=== PATIENT | male | born 1935 | race Caucasian/White ===

== ENCOUNTER 2018-10-31 17:37 | Inpatient (IN) | payer OTHER ==
[~2018-10-31] VITALS: Ht 182.9 cm; Wt 95.2 kg
[2018-10-31 18:13] LABS: BASOPHILS ABSOLUTE AUTO 0.03 K/mm3 (0.00-0.23); BASOPHILS PERCENT AUTO 0 % (0-2); EOSINOPHILS ABSOLUTE AUTO 0.07 K/mm3 (0.00-0.68); EOSINOPHILS PERCENT AUTO 0 % (0-6); Hematocrit 50.5 % (37.0-53.0); Hemoglobin 16.5 g/dL (13.5-17.5); IMMATURE GRAN ABSOLUTE AUTO 0.07 K/mm3 (0.00-0.10); IMMATURE GRAN PERCENT AUTO 0 % (0-1); LYMPHOCYTES ABSOLUTE AUTO 2.32 K/mm3 (0.84-5.20); LYMPHOCYTES PERCENT AUTO 14 % (21-46); MONOCYTES ABSOLUTE AUTO 0.96 K/mm3 (0.16-1.47); MONOCYTES PERCENT AUTO 6 % (4-13); Mean Corpuscular HGB 27.4 pg (26.0-34.0); Mean Corpuscular HGB Conc 32.7 g/dL (31.5-36.5); Mean Corpuscular Volume 84 fL (80-100); Mean Platelet Volume 10.4 fL (9.1-12.4); NEUTROPHILS ABSOLUTE AUTO 13.55 K/mm3 (1.96-9.15); NEUTROPHILS PERCENT AUTO 80 % (41-73); Platelet Count 329 K/mm3 (150-400); RDW Coefficient Variation 15.2 % (11.7-14.2); RDW Standard Deviation 44.9 fL (35.1-46.3); Red Blood Cell Count 6.02 M/mm3 (4.30-5.90)
[2018-10-31 19:06] LABS: Alanine Aminotransfer (ALT/SGP 14 U/L (12-78); Albumin, Blood 4.3 g/dL (3.4-5.0); Albumin/Globulin Ratio 1.2 (0.8-1.8); Alk Phos 81 U/L (50-136); Anion Gap 9 mmol/L (6-16); Aspartate Aminotrans (AST/SGOT 13 U/L (12-37); Bilirubin, Total 1.7 mg/dL (0.1-1.0); Blood Urea Nitrogen 13 mg/dL (8-24); CO2, Blood 22 mmol/L (21-32); Calcium, Blood 9.4 mg/dL (8.5-10.1); Chloride, Blood 110 mmol/L (98-108); Creatinine, Blood 0.93 mg/dL (0.60-1.20); Globulin, Blood 3.5 g/dL (2.2-4.0); Glomerular Filtration Rate >60 (60-); Glucose, Blood 122 mg/dL (70-99); Sodium, Blood 141 mmol/L (136-145); Total Protein, Blood 7.8 g/dL (6.4-8.2); Troponin I 0.154 ng/mL (0.000-0.040)
[2018-10-31 20:12] LABS: Source, Urine Clean Catch
[2018-10-31 20:24] LABS: Bilirubin, Urine Neg (Neg); Blood, Urine 5+ (Neg); Glucose Qualitative, Urine Neg (Neg); Ketones, Urine 1+ (Neg); Leukocyte Esterase, Urine 1+ (Neg); Nitrite, Urine Neg (Neg); Protein, Urine 2+ (Neg); Urobilinogen, Urine NORM (Normal)
[2018-10-31 20:31] LABS: Color, Urine Red (P-Yellow)
[2018-10-31 20:32] LABS: Appearance, Urine Cloudy (Clear); Squamous Epithelial Cells Not Seen /hpf (Few)
[2018-10-31 20:35] LABS: Red Blood Cells, Urine TNTC /hpf (0-2); White Blood Cells, Urine 0-2 /hpf (0-5)
[2018-10-31 20:36] LABS: Bacteria Rare /hpf
[2018-10-31] MEDS ORDERED: DIGOX125 MCG PO (21:09)
[2018-10-31] MEDS ORDERED: ELIQUIS5 MG PO (21:09)
[2018-10-31] MEDS ORDERED: METO50 PO (21:10)
[2018-10-31] MEDS ORDERED: FINA5 PO (21:10)
[2018-10-31] MEDS ORDERED: OMEPRAZOLE MAGN20 MG PO (21:11)
[2018-10-31] MEDS ORDERED: TERA5 PO (21:11)
[2018-11-01 02:18] LABS: Creatine Kinase MB 2.8 ng/mL (0.0-3.6); Troponin I 0.196 ng/mL (0.000-0.040)
[2018-11-01 06:45] LABS: Digoxin (Lanoxin) 0.19 ug/mL (0.80-2.00)
--- NOTE | 2018-11-01 07:30 | NUR ---
*SHIFT SUMMARY* PATIENT ARRIVED TO ROOM VIA STRETCHER FROM ER. ON ROOM AIR, NO SOB OR CP NOTED. PATIENT PLACED ON TELE, A-FIB WITH BBB IN 80-90'S. LOPEZ IN FROM [facility] TODAY. LOPEZ REMOVED AND NEW LOPEZ PLACED. URINE IS RED. PATIENT IS HAVING LOWER ABDOMINAL PAIN. PATIENT MEDICATED FOR PAIN, SOME RELIEF OBTAINED BUT DID NOT LAST FOR VERY LONG. HOSPITALIST CALLED FOR INCREASED BLOOD PRESSURE AND HEART RATE. NEW ORDER FOR VALIUM BID. THIS TO DECREASED PAIN FOR A SHORT AMOUNT OF TIME. PT IS ALERT AND ORIENTED. CALL LIGHT WITHIN REACH, BED LOWERED AND LOCKED.
[2018-11-01 07:58] LABS: Source, Urine Catheter
[2018-11-01 08:24] LABS: Bilirubin, Urine Neg (Neg); Blood, Urine 5+ (Neg); Glucose Qualitative, Urine Neg (Neg); Ketones, Urine 3+ (Neg); Leukocyte Esterase, Urine 2+ (Neg); Nitrite, Urine Neg (Neg); Protein, Urine 3+ (Neg); Specific Gravity, Urine 1.015 (1.003-1.022); Urobilinogen, Urine 1+ (Normal)
[2018-11-01 08:31] LABS: Appearance, Urine Cloudy (Clear); Color, Urine Yellow (P-Yellow)
[2018-11-01 08:33] LABS: Bacteria Few /hpf; Red Blood Cells, Urine TNTC /hpf (0-2); Squamous Epithelial Cells Not Seen /hpf (Few)
[2018-11-01 10:12] LABS: Creatine Kinase MB 2.2 ng/mL (0.0-3.6); Creatine Kinase MB Index 4.4 (0.0-4.0); Troponin I 0.146 ng/mL (0.000-0.040)
--- NOTE | 2018-11-01 19:08 | NUR ---
SHIFT SUMMARY PATIENT A&O X4. C/O SHARP LOWER ABD PAIN THROUGHOUT THE SHIFT. RN MEDICATED PER Oct. DENIES ANY SOB. LOPEZ PATENT AND DRAINING LIGHT RED COLORED URINE. NO CLOTS PRESENT. RN IRRIGATED BLADDER PER DR. REILLY. ENCOURAGED PATIENT TO INSCREASE ORAL FLUIDS THROUGHOUT THE SHIFT. NO ACUTE CHANGES THIS SHIFT, DAUGHTER IS AT THE BEDSIDE. REPORT GIVEN TO ONCOMING RN.
--- NOTE | 2018-11-02 02:10 | NUR ---
PT WAS FOUND IN HALLWAY ENTERING ANOTHER PATIENTS ROOM AROUND 0200. PATIENT WAS CONFUSED ABOUT WHERE HE WAS OR WHAT HE WAS DOING. GAIT WAS UNSTEADY, HIS LOPEZ CATHETER WAS DRAGGING BETWEEN HIS FEET. STAFF REORIENTED PATIENT TO LOCATION AND WHAT WAS GOING ON. PT WALKED BACK TO ROOM WITH ASSIST AND GOT INTO BED. EXPLAINED TO PT THAT THIS RN WAS GOING TO CALL THE DOCTOR AND WOULD BE BACK TO CHECK ON HIM IN A FEW MINUTES. PT SAID OKAY. I ASKED HIM IF HE WAS STILL CONFUSED, PT STATED YES HE DIDN'T KNOW WHO THE BLACK BEARDED MAN WAS. THIS WAS LIKE THE PATIENT NEXT DOOR THAT HE WANDERED INTO. PATIENT STATED HE WOULD STAY IN BED. ALARM WAS SET AND CALL LIGHT IN REACH. CALLED HOSPITALIST TO INFORM HIM OF THE PATIENTS CHANGE IN MENTATION. NO NEW ORDERS.
--- NOTE | 2018-11-02 02:30 | NUR ---
PCU COP CALLED THIS RN AND ASKED TO CHECK ON PT, STATING HIS HEART RATE WAS IN THE 150'S AND LOOKED LIKE V-TACH. THIS RN FOUND PT OUT OF BED WITH BED ALARM SOUNDING. PT WAS STANDING IN THE DOORWAY OF THE BATHROOM. PT WAS CONFUSED SAYING HE NEEDED TO PEE. STAFF REORIENTED THAT HE HAD A LOPEZ CATHETER IN. ASSISTED PT BACK TO BED SAFELY. VITAL SIGNS OBTAINED. CALLED HOSPITALIST. NEW ORDERS SEE EMAR. PATIENT STATES HE IS CONFUSED AND DOES NOT UNDERSTAND WHAT IS GOING ON. DR. TYLER EVALUATED PATIENT AND EXPLAINED TO HIM THAT HE FEELS HE IS DEHYDRATED AND CONFUSED FROM THE UTI. PT SEEMS TO BE MORE ORIENTED WHILE LAYING DOWN. CALL LIGHT IN REACH AND BED ALARM ON.
[2018-11-02 04:23] LABS: Hematocrit 47.4 % (37.0-53.0); Hemoglobin 15.6 g/dL (13.5-17.5); Mean Corpuscular HGB Conc 32.9 g/dL (31.5-36.5); Mean Corpuscular Volume 85 fL (80-100); Mean Platelet Volume 9.7 fL (9.1-12.4); Platelet Count 284 K/mm3 (150-400); RDW Coefficient Variation 14.4 % (11.7-14.2); RDW Standard Deviation 44.7 fL (35.1-46.3); Red Blood Cell Count 5.58 M/mm3 (4.30-5.90); White Blood Cell Count 13.34 K/mm3 (4.00-11.30)
[2018-11-02 04:48] LABS: Anion Gap 12 mmol/L (6-16); Blood Urea Nitrogen 22 mg/dL (8-24); Bun/Creatinine Ratio 20.6 (12.0-20.0); CO2, Blood 22 mmol/L (21-32); Calcium, Blood 8.6 mg/dL (8.5-10.1); Chloride, Blood 107 mmol/L (98-108); Creatinine, Blood 1.07 mg/dL (0.60-1.20); Glomerular Filtration Rate >60 (60-); Glucose, Blood 114 mg/dL (70-99); Potassium, Blood 3.6 mmol/L (3.5-5.5); Sodium, Blood 141 mmol/L (136-145)
--- NOTE | 2018-11-02 05:25 | NUR ---
*SHIFT SUMMARY* PATIENT AT BEGINING OF SHIFT WAS ALERT AND ORIENTED TO PERSON, TIME AND PLACE. WAS COMPLAINING OF PAIN IN LOWER ABDOMEN AND WAS MEDICATED ORDERED. PT SLEPT WELL FOR A COUPLE OF HOURS AND AWOKE CONFUSED, SEE PREVIOUS NOTES FOR MORE DETAILS. PT SINCE THEN HAS REMAINED IN BED AND NOT ATTEMPTED TO GET OUT OF BED AGAIN. PT SEEMS TO BE THINKING A LITTLE MORE CLEAR. BLADDER SCAN WAS COMPLETED AND SHOWED TO HAVE 100ML IN BLADDER. EKG WAS COMPLETED FOLLOWING UP FROM [employer]'S REPORT OF RHYTHM CHANGE. NEW EKG PLACED IN CHART. LAST SET OF VITALS STABLE. CALL LIGHT WITHIN REACH, BED LOWERED AND LOCKED WITH ALARM ON.
--- NOTE | 2018-11-03 06:36 | NUR ---
SHIFT SUMMARY PT A/O. LOPEZ DRAINING DARK TEA COLORED URINE. IRRIGATED LOPEZ C 70ML, NO CLOTS, PULLED BACK LIGHT YELLOW URINE. BLADDER SCAN SHOWED ZERO IN BLADDER. HE WAS ABLE TO SLEEP THROUGH NIGHT. CALL LIGHT IN REACH
[2018-11-03 07:51] LABS: Hematocrit 46.7 % (37.0-53.0); Hemoglobin 15.2 g/dL (13.5-17.5); Mean Corpuscular HGB 27.6 pg (26.0-34.0); Mean Corpuscular HGB Conc 32.5 g/dL (31.5-36.5); Mean Corpuscular Volume 85 fL (80-100); Mean Platelet Volume 9.9 fL (9.1-12.4); Platelet Count 249 K/mm3 (150-400); RDW Coefficient Variation 14.6 % (11.7-14.2); RDW Standard Deviation 44.6 fL (35.1-46.3); White Blood Cell Count 11.17 K/mm3 (4.00-11.30)
[2018-11-03 08:17] LABS: Anion Gap 9 mmol/L (6-16); Blood Urea Nitrogen 20 mg/dL (8-24); Bun/Creatinine Ratio 17.7 (12.0-20.0); CO2, Blood 24 mmol/L (21-32); Calcium, Blood 8.6 mg/dL (8.5-10.1); Chloride, Blood 106 mmol/L (98-108); Creatinine, Blood 1.13 mg/dL (0.60-1.20); Glomerular Filtration Rate >60 (60-); Glucose, Blood 112 mg/dL (70-99); Potassium, Blood 3.7 mmol/L (3.5-5.5); Sodium, Blood 139 mmol/L (136-145)
[2018-11-03] MEDS ORDERED: TAMS.4ER PO (13:39)
[2018-11-03] MEDS ORDERED: METO50ER PO (13:39)
[2018-11-03] MEDS ORDERED: LEVFLO500 PO (13:41)
--- NOTE | 2018-11-03 15:14 | NUR ---
2713 PT DISCHARGED HOME VIA PERSONAL VEHICLE ACCOMPANIED AND DRIVEN BY DAUGHTER. PT ESCORTED TO FACILITY ENTRANCE BY THIS RN VIA W/C. D/C PAPERWORK REVIEWED WITH PT AND COPY PROVIDED. IV REMOVED. NEW RX FAXED TO [facility] PER PT REQUEST. LOPEZ CATHETER BAG CHANGED TO LEG BAG. NO NEW CHANGES.
== END 2018-11-03 14:57 | disposition home health service (06) | DRG 871 ==
LOC: ER 17:37 → MEDS 17:38
PROVIDERS: Emergency Medicine; Internal Medicine; ADMIT Internal Medicine
DX: A41.9 Sepsis, unspecified organism (principal); G92 Toxic encephalopathy; N39.0 Urinary tract infection, site not specified; I50.22 Chronic systolic (congestive) heart failure; I42.9 Cardiomyopathy, unspecified; I48.91 Unspecified atrial fibrillation; R33.9 Retention of urine, unspecified; R31.9 Hematuria, unspecified; N40.1 Benign prostatic hyperplasia with lower urinary tract symptoms; I44.7 Left bundle-branch block, unspecified
CPT/HCPCS: 36415; 51702; 71046; 74177; 80048; 80053; 80162; 81001; 82550; 82553; 83880; 84484; 85025; 85027; 87086; 93005; 93010; 96361; 96365; 96366; 96374-59; 96375; 96375-59; 96376; 97161; 99285-25; G0378; J0696; J3010; J3360; J7030; Q9967

== ENCOUNTER 2020-05-12 19:53 | Inpatient (IN) | payer OTHER, MEDICARE ==
[~2020-05-12] VITALS: Ht 185.4 cm; Wt 99.8 kg
[~2020-05-12 19:53] MED LIST: AMOCLA875 PO; DIGOX125 MCG PO; ELIQUIS5 MG PO; FINA5 PO; LEVFLO500 PO; Lasix40 MG PO; METO50 PO; METO50ER PO; OMEPRAZOLE MAGN20 MG PO; TAMS.4ER PO; TERA5 PO; Zithromax250 MG PO
[2020-05-12 21:16] LABS: BASOPHILS ABSOLUTE AUTO 0.03 K/mm3 (0.00-0.23); BASOPHILS PERCENT AUTO 0 % (0-2); EOSINOPHILS ABSOLUTE AUTO 0.22 K/mm3 (0.00-0.68); EOSINOPHILS PERCENT AUTO 2 % (0-6); Hematocrit 46.5 % (37.0-53.0); Hemoglobin 14.9 g/dL (13.5-17.5); IMMATURE GRAN ABSOLUTE AUTO 0.02 K/mm3 (0.00-0.10); IMMATURE GRAN PERCENT AUTO 0 % (0-1); LYMPHOCYTES ABSOLUTE AUTO 2.15 K/mm3 (0.84-5.20); LYMPHOCYTES PERCENT AUTO 23 % (21-46); MONOCYTES ABSOLUTE AUTO 0.68 K/mm3 (0.16-1.47); MONOCYTES PERCENT AUTO 7 % (4-13); Mean Corpuscular HGB 27.5 pg (26.0-34.0); Mean Corpuscular Volume 86 fL (80-100); NEUTROPHILS ABSOLUTE AUTO 6.13 K/mm3 (1.96-9.15); NEUTROPHILS PERCENT AUTO 66 % (41-73); Platelet Count 323 K/mm3 (150-400); RDW Standard Deviation 46.5 fL (35.1-46.3); Red Blood Cell Count 5.41 M/mm3 (4.30-5.90); White Blood Cell Count 9.23 K/mm3 (4.00-11.30)
[2020-05-12 21:41] LABS: Alanine Aminotransfer (ALT/SGP 10 U/L (12-78); Albumin, Blood 4.1 g/dL (3.4-5.0); Albumin/Globulin Ratio 1.3 (0.8-1.8); Alk Phos 69 U/L (50-136); Anion Gap 10 mmol/L (6-16); Aspartate Aminotrans (AST/SGOT 12 U/L (12-37); Blood Urea Nitrogen 15 mg/dL (8-24); CO2, Blood 22 mmol/L (21-32); Calcium, Blood 8.8 mg/dL (8.5-10.1); Chloride, Blood 108 mmol/L (98-108); Creatinine, Blood 1.15 mg/dL (0.60-1.20); Globulin, Blood 3.2 g/dL (2.2-4.0); Glomerular Filtration Rate >60 (60-); Glucose, Blood 133 mg/dL (70-99); Potassium, Blood 3.7 mmol/L (3.5-5.5); Sodium, Blood 140 mmol/L (136-145); Total Protein, Blood 7.3 g/dL (6.4-8.2); Troponin I 0.017 ng/mL (0.000-0.040)
[2020-05-12 22:29] LABS: Source, Urine Clean Catch
[2020-05-12 22:33] LABS: Bilirubin, Urine Neg (Neg); Blood, Urine Neg (Neg); Glucose Qualitative, Urine Neg (Neg); Ketones, Urine Neg (Neg); Leukocyte Esterase, Urine Neg (Neg); Nitrite, Urine Neg (Neg); Protein, Urine Neg (Neg); Specific Gravity, Urine 1.015 (1.003-1.022); Urobilinogen, Urine NORM (Normal)
[2020-05-12 22:42] LABS: Appearance, Urine Clear (Clear); Color, Urine Yellow (P-Yellow)
--- NOTE | 2020-05-13 00:20 | NUR ---
RECEIVED REPORT FROM ALEJANDRA GHOSH RN. PT TRANSPORTED TO MEDICAL FLOOR VIA W/C. AMBULATED SELF TO BATHROOM THEN TO BED WITH ONE ASSIST. AT THE BEDSIDE. PT ORIENTED TO ROOM AND USE OF CALL LIGHT. VSS. DENIES NEEDS AT THIS TIME. CALL LIGHT, POSSESSIONS AND REACH, CONTINUE TO MONITOR.
[2020-05-13] MEDS ORDERED: METO100ER PO (00:37)
--- NOTE | 2020-05-13 02:14 | NUR ---
SPOKE TO DR. PEREZ REGARDING PT'S C/O "INDIGESTION." ORDERS RECEIVED. CONTINUE TO MONITOR.
[2020-05-13 05:59] LABS: Anion Gap 12 mmol/L (6-16); Blood Urea Nitrogen 16 mg/dL (8-24); Bun/Creatinine Ratio 15.5 (12.0-20.0); CO2, Blood 20 mmol/L (21-32); Calcium, Blood 9.1 mg/dL (8.5-10.1); Chloride, Blood 108 mmol/L (98-108); Creatinine, Blood 1.03 mg/dL (0.60-1.20); Glomerular Filtration Rate >60 (60-); Glucose, Blood 142 mg/dL (70-99); Potassium, Blood 3.5 mmol/L (3.5-5.5); Sodium, Blood 140 mmol/L (136-145)
--- NOTE | 2020-05-13 07:36 | NUR ---
SHIFT SUMMARY PT RESTING COMFORTABLY AT THIS TIME, NO S/S ACUTE DISTRESS NOTED. APPEARS MORE COMFORTABLE SINCE STRAIGHT CATHETERIZATION, NO FURTHER C/O "BLADDER PAIN." PT PLEASANT, COOPERATIVE WITH CARES. NO BMS THIS SHIFT SINCE ARRIVAL TO UNIT. PT DENIES NEEDS AT THIS TIME. CALL LIGHT, POSSESSIONS IN REACH. REPORT GIVEN TO TREY RIVERS.
--- NOTE | 2020-05-13 12:02 | NUR ---
URINE APPEARING BRIGHT RED/BLOODY. CLOT NOTICED. PT ON XARELTO AND WAS STRAIGHT CATHED THE NIGHT BEFORE. LINDA NOTIFIED. NO MORE STRAIGHT CATH IF POSSIBLE, CONTINUE XARELTO.
--- NOTE | 2020-05-13 14:27 | NUR ---
Echocardiogram completed.
--- NOTE | 2020-05-13 18:28 | NUR ---
SHIFT SUMMARY PT IS A&O X4. PT WAS STRAIGHT CATH PRIOR NIGHT AND BEGAN URINATING BLOOD FREQUENTLY. BLOOD CLOTS ALSO BEGAN TO BE NOTED IN THE URINE. PT STARTED TO URINATE LESS FREQUENTLY THE DAY WENT ON, BUT STILL EXPELLING BLOOD FROM URETHRA. BLADDER SCANS ARE SHOWING APPROX 264 ML. PROVIDER NOTIFIED AND RECOMMENDED WE HOLD THE XARELTO AND BEGIN CONTINUOUS BLADDER IRRIGATION. PT ALSO EXPERIENCING INDEGESTION T/O SHIFT AND THAT IS BEING TREATED WITH LEVSIN PER EMAR. PT REPORTED CONSTIPATION X4 DAYS. PT HAD MULTIPLE BM TODAY. PT ON TELE AFIB @ 46.
--- NOTE | 2020-05-13 18:32 | NUR ---
PT REPORTS HAVING DIFFICULTY URINATING. BLADDER SCAN AT 1723 OF 268. PT CONT TO HAVE BLOODY URINE WITH CLOTS. SPOKE WITH DR MCKEON WHO ORDERED [address] CATHETER WITH CONTINUOUS BLADDER IRRIGATION. HOLD XAJOSE D Next JumpELDA.
[2020-05-13 19:25] LABS: Source, Urine Catheter
[2020-05-13 19:27] LABS: Appearance, Urine Turbid (Clear); Bilirubin, Urine Neg (Neg); Blood, Urine 4+ (Neg); Color, Urine Red (P-Yellow); Glucose Qualitative, Urine Neg (Neg); Ketones, Urine 2+ (Neg); Leukocyte Esterase, Urine Neg (Neg); Nitrite, Urine Neg (Neg); Protein, Urine 4+ (Neg); Specific Gravity, Urine 1.015 (1.003-1.022); Urobilinogen, Urine NORM (Normal)
[2020-05-13 19:42] LABS: Bacteria Not Seen /hpf; Red Blood Cells, Urine TNTC /hpf (0-2); Squamous Epithelial Cells Not Seen /hpf (Few)
--- NOTE | 2020-05-13 21:01 | NUR ---
Patient having severe bladder spasms while being irrigated. output still bev red, but no clots noted upon emptying lowery. Levsin given per order. will monitor closely to determine effectiveness.
--- NOTE | 2020-05-13 21:53 | NUR ---
Patient continues to writh in pain 10/10 45 minutes after dose of Levsin. Call placed to night hospitalist to advise. Order for Roxycodone received with advice to re contact MD if medication is or is not effective.
[2020-05-14 02:30] LABS: BASOPHILS ABSOLUTE AUTO 0.04 K/mm3 (0.00-0.23); BASOPHILS PERCENT AUTO 0 % (0-2); EOSINOPHILS ABSOLUTE AUTO 0.06 K/mm3 (0.00-0.68); EOSINOPHILS PERCENT AUTO 0 % (0-6); Hematocrit 46.8 % (37.0-53.0); Hemoglobin 15.3 g/dL (13.5-17.5); IMMATURE GRAN ABSOLUTE AUTO 0.05 K/mm3 (0.00-0.10); IMMATURE GRAN PERCENT AUTO 0 % (0-1); LYMPHOCYTES ABSOLUTE AUTO 1.78 K/mm3 (0.84-5.20); LYMPHOCYTES PERCENT AUTO 12 % (21-46); MONOCYTES ABSOLUTE AUTO 1.09 K/mm3 (0.16-1.47); MONOCYTES PERCENT AUTO 7 % (4-13); Mean Corpuscular HGB 28.2 pg (26.0-34.0); Mean Corpuscular HGB Conc 32.7 g/dL (31.5-36.5); Mean Corpuscular Volume 86 fL (80-100); Mean Platelet Volume 10.3 fL (9.1-12.4); NEUTROPHILS ABSOLUTE AUTO 12.08 K/mm3 (1.96-9.15); NEUTROPHILS PERCENT AUTO 80 % (41-73); Platelet Count 305 K/mm3 (150-400); RDW Coefficient Variation 14.8 % (11.7-14.2); RDW Standard Deviation 46.6 fL (35.1-46.3); Red Blood Cell Count 5.43 M/mm3 (4.30-5.90)
[2020-05-14 02:49] LABS: Anion Gap 9 mmol/L (6-16); Blood Urea Nitrogen 19 mg/dL (8-24); Bun/Creatinine Ratio 16.5 (12.0-20.0); CO2, Blood 25 mmol/L (21-32); Calcium, Blood 9.2 mg/dL (8.5-10.1); Chloride, Blood 104 mmol/L (98-108); Creatinine, Blood 1.15 mg/dL (0.60-1.20); Glomerular Filtration Rate >60 (60-); Glucose, Blood 134 mg/dL (70-99); Potassium, Blood 4.2 mmol/L (3.5-5.5); Sodium, Blood 138 mmol/L (136-145)
--- NOTE | 2020-05-14 05:29 | NUR ---
TELE: A FIB SUSTAINED 130'S TO 150'S. HOSPITALIST NOTIFIED AND ORDER FOR A ONE TIME 5MG IV LOPRESSOR GIVEN. 15 MINUTES LATER, JUST PRIOR TO ADMINISTERING THE DRUG, THE PBX REPAIRER WAS CONTACTED AND RATE HAD DROPPED TO THE 100-105 RANGE. LOPRESSOR HELD AT THAT POINT. RECHECK RATE AFTER 15-20 MINUTES. HEART RATE NOW 110-118. WILL CONTINUE CLOSE MONITORING FOR NOW.
--- NOTE | 2020-05-14 05:37 | NUR ---
LIVER TRIMMER SUMMARY Patient very anxious and painful throughout the night despite multiple doses of morphine and ativan. Nito summarizes his pain as an 8-10/10 in intensity, and is moaning and rubbing his lower abdomen and bladder area througout the shift. Almost 18liters of irrigant was filtered through bladder needing frequent manual irrigation to remove clots. towards end of night, urine was alternting from a clearer red/pink to what appeared to be bev blood. Hospitalist was contacted several times regarding pain, anxiety and telemetry. Patient very anxious to know what is going to happen today to stop the bleeding.
--- NOTE | 2020-05-14 10:58 | NUR ---
PT NOTED TO BE MOANING IN HIS ROOM. WENT IN AND NOTICED CONTINUOUS BLADDER IRRIGATION AND HAS SLOWED DOWN. PT REPORTS SPASMS AND PRESSURE TO ABD/ BLADDER. AT THIS TIME DTP OPERATOR CALLED AND REPORTED HR HAS INCREASED TO 140. ATTEMPTED MANUAL BLADDER IRRIGATION WITHOUT SUCCESS. WITH DISMANTLER SALLY AND CAMERON WE WERE ABLE TO PLACE A [address] LOPEZ FOR BLADDER IRRIGATION. MANUAL IRRIGATION GOT APROX 150ML OF CLOTS OUT AT THIS TIME. CONTINUOUS IRRIGATION RESTARTED AT THIS TIME. APROX 5 MIN LATER PT REQUIRING MANUAL IRRIGATION AGAIN FOR CLOTS. PT HAS NEEDED THIS NOW MULTIPLE TIMES THIS AM. DR ARTHUR NOTIFIED AND AT BEDSIDE. BP 119/87 AND HR NOW DOWN TO 110 PER DTP OPERATOR. PT NOTED TO BE MORE PALE TODAY THAN YESTERDAY EVEN WITH INCREASE OF HGB THIS. STAT H&H ORDERED AT THIS TIME. PT ALSO NOTED TO HAVE INCREASED CONFUSION TODAY AND ATTEMPTING TO GET OUT OF BED MULTIPLE TIMES. PER DR ARTHUR TRANSFER TO PCU, STOP XARELTO. WILL CALL REPORT TO PCU.
[2020-05-14 11:15] LABS: Hematocrit 47.8 % (37.0-53.0); Hemoglobin 15.4 g/dL (13.5-17.5)
--- NOTE | 2020-05-14 11:31 | NUR ---
REPORT TREY CALHOUN IN PCU. PT TRANSFERED TO PCU 11 VIA BED. DAUGHTER NOTICED IN THE HALLWAY AND UPDATED OF TRANSFER.
--- NOTE | 2020-05-14 11:56 | NUR ---
Telephone report received from Juan Carlin prior to pt arrival to PCU 11; the pt is very sleepy, able to answer correctly the date, but quickly falls back to sleep at can be a little difficult to get him to stay awake during assessment. Continuous bladder irrigation is in progress, at full speed, and draining bright red into lowery collection. Draining without stopping. The pt does deny any pain, difficulty breathing at this time. He is able to stay awake encough to sip some water. Daughter Shonda is at the bedside.
--- NOTE | 2020-05-14 12:11 | NUR ---
From 1125 to 1210, bladder irrigation was 3 liters total, with calculated urine output of 175. At this time, draining clear with pink tinge. Pt is c/o cramp in his ankle area of the left leg.
--- NOTE | 2020-05-14 13:06 | NUR ---
FROM 1210 TO 1300 BLADDER IRRIGATION INFUSION WAS 3 LITERS, WITH 100 MLS URINE OUTPUT. URINE IS RED TINGED. HEATING PAD PLACED FOR LEG CRAMPS.
--- NOTE | 2020-05-14 15:36 | NUR ---
Two calls to regarding pt's requirement of 3000cc NS per hour for bladder irrigation in order to prevent clots clogging the lowery catheter, and continuing bright red urine and irrigation fluid being evacuated. The irrigation was inadvertently paused for about 5 minutes and this caused a clog; manual irrigation done and about 30 cc of blood clots were evacuated. Following this, Dr Santacruz was called. She states that this is not surprising since the pt's last dose of xarelto was yesterday. Second call to Dr. Santacruz by Viky Mckee because the pt was complaining of bladder spasms, and she did not want to give morphine due to the pt's pin point pupils and noted apneic periods. New orders were received for the pt's relief of spasms.
--- NOTE | 2020-05-14 16:15 | NUR ---
Don was complaining of a lot of discomfort in his lower abdomen, and noted the lowery was not draining. Antonio blood noted seeping from around the lowery urethral insertion site, for at least the 4th time. Heart rate increased to 150-160 during the intense time of pain for the pt. The pt required agressive manual bladder irrigation and removal of clots via piston syringe in the lowery catheter. About 50 cc of blood clots removed, and the pt states he feels much better. Heart rate is decreased to 110 at this time, atrial fibrillation. observed that while he is sleeping he is having up to 30 second periods of apnea. PT states he does not use CPAP/BIPAP at home.
--- NOTE | 2020-05-14 16:30 | NUR ---
PATIENT WAS COMPLAINING OF PAIN IN HIS LOWER ABDOMEN. STATES THAT IT FEELS LIKE "I NEED TO GO TO THE BATHROOM". HEARTRATE UP IN THE 150'S-160'S PER TELETECH. BLOOD LEAKING AROUND CATHETER INSERTION SITE. PATIENT AGREED TO BLADDER IRRIGATION. STERILE TECHNIQUE MAINTAINED. APPROX 50 CCS CLOTS REMOVED FROM CATHETER. PATIENT REPORTED RELIEF AND WAS ABLE TO SLEEP. BLADDER IRRIGATION CONTINUES AT WIDE OPEN, APPROX 3000 CCS PER HOUR. SEE UNIQUE YANG'S NOTE.
--- NOTE | 2020-05-14 17:43 | NUR ---
Bladder irrigation done again manually as pt was c/o discomfort and urethral bleeding (very small amount) again noted. Few clots were evacuated this time. Pt is sitting up, daughter assisting him with dinner.
--- NOTE | 2020-05-14 18:10 | NUR ---
summary The pt has been more awake and interactive, appropriate in conversation by the end of this shift. He is still sleeping in between interactions, and continuous oxymetry was initiated due to observed apneic periods while sleeping. Since his arrival to PCU, manual irrigation was done 3 times to evacuate clots and reduce the pt's abdominal discomfort. Continuous bladder irrigation is now running at 6000cc/hour to maintain the urine a clear red color as much as possible. Atrial fibrillation is noted by telemetry, rate around 100 except when the pt was in significant pain from abdominal pressure and rate increased to 150-160. Oral PRN medications have significantly helped this, as well as the manual irrigation and clot evacuation. Bed alarm remains on in case of periods of confusion, especially at night.
[2020-05-14 18:31] LABS: Hematocrit 45.6 % (37.0-53.0); Hemoglobin 14.9 g/dL (13.5-17.5)
--- NOTE | 2020-05-14 20:04 | NUR ---
CARE ASSUMPTION PT A&O X4, ANSWERING Q's APPROPRIATELY AT THIS TIME. PT LUNG SOUNDS CLEAR, DIM IN BASES. SPO2 > 92% ON 2L NC. MONITOR SHOWS AFIB, HR 90's. PT C/O INTERMITTENT ABD "PRESSURE". HOT PAD APPLIED TO PT ABD W/ REPORT OF RELIEF. 3 WAY LOPEZ CATH W/ CONTINUOUS IRRIGATION PATENT & DRAINING INTERMITTENTLY PINK TINGED OR RED OUTPUT. SMALL AMOUNT OF BLEEDING NOTED AT URETHRA. WILL CONTINUE TO MONITOR & PROVIDE CARE.
--- NOTE | 2020-05-15 00:58 | NUR ---
PAIN UPDATE PT C/O 04/23 "BELLY" PAIN. PT MEDICATED W/ 2MG PRN IV MORPHINE W/ PT DENIAL OF IMPROVEMENT. PT THEN MEDICATED W/ PRN PO LEVSIN APPROX 1.5 HR LATER D/T PT CONTINUED PAIN REPORT OF 04/23 "BELLY" PAIN AT THIS TIME. LOPEZ CATH STILL DRAINING INTERMITTENTLY PINK TINGED OR RED URINE OUTPUT. CONTINUOUS BLADDER IRRIGATION STILL INFUSING. HOT PAD IN PLACE TO LOWER ABD. WILL CONTINUE TO MONITOR & PROVIDE CARE.
[2020-05-15 03:36] LABS: BASOPHILS ABSOLUTE AUTO 0.03 K/mm3 (0.00-0.23); BASOPHILS PERCENT AUTO 0 % (0-2); EOSINOPHILS ABSOLUTE AUTO 0.08 K/mm3 (0.00-0.68); EOSINOPHILS PERCENT AUTO 1 % (0-6); Hematocrit 44.7 % (37.0-53.0); Hemoglobin 14.5 g/dL (13.5-17.5); IMMATURE GRAN ABSOLUTE AUTO 0.05 K/mm3 (0.00-0.10); IMMATURE GRAN PERCENT AUTO 0 % (0-1); LYMPHOCYTES ABSOLUTE AUTO 2.45 K/mm3 (0.84-5.20); LYMPHOCYTES PERCENT AUTO 16 % (21-46); MONOCYTES ABSOLUTE AUTO 1.45 K/mm3 (0.16-1.47); MONOCYTES PERCENT AUTO 9 % (4-13); Mean Corpuscular HGB 27.8 pg (26.0-34.0); Mean Corpuscular HGB Conc 32.4 g/dL (31.5-36.5); Mean Corpuscular Volume 86 fL (80-100); Mean Platelet Volume 10.6 fL (9.1-12.4); NEUTROPHILS ABSOLUTE AUTO 11.59 K/mm3 (1.96-9.15); NEUTROPHILS PERCENT AUTO 74 % (41-73); Platelet Count 324 K/mm3 (150-400); RDW Coefficient Variation 14.7 % (11.7-14.2); RDW Standard Deviation 46.5 fL (35.1-46.3); Red Blood Cell Count 5.21 M/mm3 (4.30-5.90); White Blood Cell Count 15.65 K/mm3 (4.00-11.30)
--- NOTE | 2020-05-15 03:38 | NUR ---
CONFUSION PT SETTING OFF BED ALARM X2 THIS SHIFT, SITTING UP TO EDGE OF BED STATING "I HAVE TO PEE. GET ME A JUG." PT REMINDED OF LOPEZ CATHETER DRAINING URINE & ASSISTED BACK TO BED W/ PT COOPERATION. LOPEZ CATH NOTED TO STILL BE DRAINING RED URINE BLADDER IRRIGATION STILL INFUSING. PT STILL ORIENTED TO SELF, PLACE, DATE & TIME. PT NOW NOTED TO HAVE FRESH SCRATCHES TO INNER L THIGH AND R LOWER LEG. PT REQUESTING "GET ME SOME ALCOHOL SO I CAN RUB MY LEGS." PT SKIN NOTED TO BE DRIED OUT AND PT NOTED TO HAVE ALREADY WIPED SKIN W/ ALCOHOL PADS AT BEDSIDE. PT ADVISED AGAINST DOING SO AND LOTION WAS THEN APPLIED TO EXTREMITIES INSTEAD. PT NOW RESTING AGAIN W/ CALL LIGHT IN REACH. BED ALARM ON. WILL CONTINUE TO MONITOR & PROVIDE CARE.
[2020-05-15 03:58] LABS: Alanine Aminotransfer (ALT/SGP 16 U/L (12-78); Albumin/Globulin Ratio 1.3 (0.8-1.8); Alk Phos 65 U/L (50-136); Anion Gap 7 mmol/L (6-16); Aspartate Aminotrans (AST/SGOT 12 U/L (12-37); Bilirubin, Total 1.6 mg/dL (0.1-1.0); Blood Urea Nitrogen 29 mg/dL (8-24); Bun/Creatinine Ratio 16.1 (12.0-20.0); CO2, Blood 27 mmol/L (21-32); Calcium, Blood 9.1 mg/dL (8.5-10.1); Chloride, Blood 102 mmol/L (98-108); Glomerular Filtration Rate 38 (60-); Glucose, Blood 115 mg/dL (70-99); Magnesium, Blood 2.5 mg/dL (1.6-2.4); Potassium, Blood 4.2 mmol/L (3.5-5.5); Sodium, Blood 136 mmol/L (136-145)
--- NOTE | 2020-05-15 05:46 | NUR ---
SHIFT SUMMARY PT CONTINUES TO BE A&O X4 W/ EPISODES OF CONFUSION & NEED FOR REMINDING. PT VSS. SPO2 > 92% ON 2L NC. MONITOR SHOWS AFIB, HR 90's-110's, HR INCREASING TO 120's w/ PT ATTEMPT TO GET OOB. PT C/O INTERMITTENT ABD "PRESSURE" OR "BELLY" PAIN THIS SHIFT, SLIGHTLY RELIEVED W/ HOT PAD TO ABD & PRN LEVSIN GIVEN X1. PT DENIES IMPROVEMENT IN PAIN W/ PRN IV MORPHINE GIVEN X1 THIS SHIFT. 3 WAY LOPEZ CATH W/ CONTINUOUS BLADDER IRRIGATION CONTINUES TO BE PATENT W/ CLEAR, PINK TINGED, OR RED OUTPUT AT VARIOUS TIMES T/O SHIFT. LOPEZ BAG EMPTIED FREQUENTLY T/O SHIFT. SMALL AMOUNT OF BLEEDING NOTED AT URETHRA THIS SHIFT ALSO. PT FREQUENTLY REQUESTING "JUG SO I CAN PEE." REQUIRING REMINDING OF CATHETER DRAINING URINE W/ PT THEN STATING "OH YEAH." NO OTHER EVENTS OVER NIGHT. WILL CONTINUE TO MONITOR & PROVIDE CARE UNTIL REPORT OFF TO DAY SHIFT RN.
--- NOTE | 2020-05-15 08:32 | NUR ---
PATIENT UP TO RECLINER WITH 2 PERSON ASSIST AND FWW. HR UP INTO THE 1TEENS PER TELEMONITOR THEN BACK DOWN TO LOW 100'S AFTER HE SAT DOWN. TOLERATED FAIR. O2 IN 90'S ON RA.
--- NOTE | 2020-05-15 09:45 | NUR ---
DR. ARTHUR AT BEDSIDE. DISCUSSED POC. NOTIFIED HER THAT PATIENT DID NOT REQUIRE MANUAL BLADDER IRRIGATION LAST NIGHT AND THAT THEY WERE ABLE TO SLOW DOWN THE CONTINUOUS BLADDER IRRIGATION "A LITTLE" PER REPORT. NOTIFIED HER PATIENT RECEIVED MORPHINE LAST NIGHT FOR PAIN WITH LITTLE EFFECT, REPORTED GOOD EFFECT WITH LEVSIN. NOTIFIED HER OF BLOOD AROUND URETHRA AND EPISODES OF APNEA WHILE SLEEPING. PLAN IS TO CONTINUE CONTINUOUS BLADDER IRRIGATION, HOLD LASIX THIS AM.
--- NOTE | 2020-05-15 10:23 | NUR ---
Pt was assisted back to bed from the recliner chair at approx 0930. Noted urethral bleeding, and pt c/o lower abdominal discomfort and bladder feeling "too full". Noted immediate change from pink tinged urine to red with the activity. Manual irrigation done and clots evacuated. Mid way through manual irrigation, no flow noted and unable to evacuate 298 cc of fluid which was found on bladder scan at that time. Manual irrigation again evacuated few more clots, but then bladder scan revealed 69 cc and pt stated he felt less pressure. Noted now have flow of pink tinged clear fluid from lowery into irrigation bag. Pt was medicated for discomfort and spasms/cramping in his pelvic area.
--- NOTE | 2020-05-15 12:15 | NUR ---
Don is sitting up in bed, eating lunch. No c/o pain or discomfort at this time. [place]-tinged fluid draining in lowery tubing, approx 700-1000cc/hour at this time, which is also roughly matching the amount of irrgation fluid infusing.
--- NOTE | 2020-05-15 12:46 | NUR ---
PATIENT'S DAUGHTER RAINA AT BEDSIDE. UPDATED HER REGARDING POC.
--- NOTE | 2020-05-15 13:59 | NUR ---
Patient c/o pain in lower abdomen after return to bed from commode. [place] patent and draining light pink urine, continuous bladder irrigation infusing. Bladder scan showed approx 70 mls in the bladder. Patient able to sleep once repositioned in bed.
--- NOTE | 2020-05-15 14:45 | NUR ---
Patient up to bsc again. No bowel movement. Complaining of cramping in lower abdomen. [place] still draining pink urine, continuous bladder irrigation infusing. Administered Levsin. Patient now sleeping. Bed alarm on.
--- NOTE | 2020-05-15 19:29 | NUR ---
SHIFT SUMMARY: PATIENT A/OX2. HAS BEEN MORE CONFUSED THIS AFTERNOON, ATTEMPTS TO GET OUT OF BED ON HIS OWN AND SETS OFF BED ALARM. IS EASILY REDIRECTABLE. LEVSIN GIVEN FOR ABD PAIN WITH GOOD EFFECT. ON ROOM AIR. CONTINUOUS BLADDER IRRIGATION CONTINUOUS. HAD TO MANUALLY IRRIGATE CATHETER X1 THIS SHIFT TO BREAK UP CLOTS. SAT UP IN CHAIR THIS AM. PATIENT STATES HE FEELS LIKE HE NEEDS TO HAVE A BM, UP MULTIPLE TIMES TO USE BSC WITH NO BM. CURATOR OF PHOTOGRAPHY AND PRINTS RN STATES THEY WILL ADMINISTER MIRALAX PER EMAR.
--- NOTE | 2020-05-15 21:24 | NUR ---
I responded to a bed alarm going off in this pt room. when i got there he was already up and out of bed. standing on his cath bag and refusing to sit down even after I told pt multiple times that i just needed him to sit really quick so i could get the bag out from under his feet. eventually he had sat down but only for a couple seconds, I had called another PCT to come assist me, we got him safely to his chair and turned the chair alarm on.
--- NOTE | 2020-05-15 23:00 | NUR ---
PT A&O TO SELF; IMPULSIVE; SETTING OFF BED ALARM SEVERAL TIMES; PULLED IV OUT OF L AC; PT EDUCATED PROVIDED CONSISTENTLY REGARDING SAFETY AND FALL PRECAUTIONS; PT BECOMING PROGRESSIVELY AGGITATED AND CURSING AT STAFF; ZAYDA MANZANO NOTIFIED NEW ORDERS GIVEN, REFER TO EMAR; NEW ORDER FOR BILATERAL SOFT WRIST RESTRAINTS GIVEN FOR PT SAFETY; CALL LIGHT IN REACH; BED IN LOWEST POSITION; WILL MONITOR CLOSELY
[2020-05-16 04:01] LABS: BASOPHILS ABSOLUTE AUTO 0.06 K/mm3 (0.00-0.23); BASOPHILS PERCENT AUTO 0 % (0-2); EOSINOPHILS ABSOLUTE AUTO 0.08 K/mm3 (0.00-0.68); EOSINOPHILS PERCENT AUTO 0 % (0-6); Hematocrit 44.2 % (37.0-53.0); Hemoglobin 14.3 g/dL (13.5-17.5); IMMATURE GRAN ABSOLUTE AUTO 0.11 K/mm3 (0.00-0.10); IMMATURE GRAN PERCENT AUTO 1 % (0-1); LYMPHOCYTES PERCENT AUTO 17 % (21-46); MONOCYTES ABSOLUTE AUTO 1.87 K/mm3 (0.16-1.47); MONOCYTES PERCENT AUTO 9 % (4-13); Mean Corpuscular HGB 27.7 pg (26.0-34.0); Mean Corpuscular HGB Conc 32.4 g/dL (31.5-36.5); Mean Corpuscular Volume 86 fL (80-100); Mean Platelet Volume 10.5 fL (9.1-12.4); NEUTROPHILS ABSOLUTE AUTO 15.43 K/mm3 (1.96-9.15); NEUTROPHILS PERCENT AUTO 73 % (41-73); Platelet Count 372 K/mm3 (150-400); RDW Coefficient Variation 14.5 % (11.7-14.2); RDW Standard Deviation 45.1 fL (35.1-46.3); Red Blood Cell Count 5.17 M/mm3 (4.30-5.90); White Blood Cell Count 21.25 K/mm3 (4.00-11.30)
[2020-05-16 04:23] LABS: Albumin, Blood 4.1 g/dL (3.4-5.0); Albumin/Globulin Ratio 1.2 (0.8-1.8); Bilirubin, Total 1.6 mg/dL (0.1-1.0); Bun/Creatinine Ratio 17.9 (12.0-20.0); Calcium, Blood 9.3 mg/dL (8.5-10.1); Creatinine, Blood 2.34 mg/dL (0.60-1.20); Globulin, Blood 3.5 g/dL (2.2-4.0); Magnesium, Blood 2.6 mg/dL (1.6-2.4); Potassium, Blood 4.3 mmol/L (3.5-5.5); Total Protein, Blood 7.6 g/dL (6.4-8.2)
--- NOTE | 2020-05-16 06:42 | NUR ---
SHIFT SUMMARY PT WAS FORGETFUL AND DISORIENTED AT BEGINING OF SHIFT AND GOT PROGRESSIVLY WORSE, GRABBING AT LOPEZ CATH AND PULLED OUT IV. NEW IV WAS PLACED. PT GOT ANGRY AND WAS THREATENING STAFF, TRYING TO GET OUT OF BED AND WALK TOWARDS OBJECTS IN THE ROOM IN THE WRONG DIRECTION, PT HAD VERY UNSTABLE GAIT. PO ZYPREXA WAS ORDERED BUT PT REFUSED TO TAKE IT. PT BECAME MORE COMBATIVE AND NOT FOLLOWING DIRECTIONS, SOFT BILATERAL WRIST RESTRAINTS WERE PLACED AND PT WAS ABLE TO PULL OUT OF THEM SEVERAL TIMES. IM ZYPREXA WAS ORDERED AND ADMINISTERED, PT WAS MUCH MORE CALM BUT STILL PULLING AT LOPEZ. BP AND HR WOULD INCREASE WHEN PT WAS AGITATED, BP AND HR WOULD BOTH COME BACK DOWN ONCE PT CALMED DOWN, HR NEVER BELOW 100BPM. PT STATED PAIN IN ABD, 3MG MORPHINE GIVEN AND PT SLEPT THE REST OF THE MORNING. BED IN LOW POSITION, BED ALARM ON, AND CALL LIGHT WITHIN REACH. WILL CONTINUE TO MONITOR UNTIL SHIFT CHANGE. IN ABD
--- NOTE | 2020-05-16 09:50 | NUR ---
DR. ARTHUR AT BEDSIDE. DISCUSSED POC. NOTIFIED HER PATIENT WAS VERY CONFUSED AND AGITATED LAST NIGHT, REQUIRED ZYPREXA IM. HEART RATE UP IN THE 140'S BUT HE DID NOT TAKE METOPROLOL LAST NIGHT. HE IS MORE TALKATIVE AT THIS TIME, ORIENTED TO SELF ONLY, COOPERATIVE AT TIMES BUT STILL PULLING ON LINES AND ATTEMPTING TO GET UP OOB. NOTIFIED HER THAT THEY DID NOT HAVE TO MANUALLY IRRIGATE LAST NIGHT. SHE IS AWARE OF WBC AND KIDNEY FUNCTION. DOES NOT WANT TO START FLUIDS D/T REDUCED EF. PLAN IS TO ENCOURAGE ORAL FLUIDS. KEEP BLADDER IRRIGATION INFUSING TO KEEP URINE CLEAR.
--- NOTE | 2020-05-16 12:25 | NUR ---
RESTRAINTS OFF AT THIS TIME. PATIENT ORIENTED TO SELF ONLY, BUT HE IS CALM. DAUGHTER RAINA AT BEDSIDE. PATIENT AGREEABLE TO EAT SOME LUNCH. NOT PULLING AT LINES AT THIS TIME.
[2020-05-16 12:33] LABS: Source, Urine Catheter
[2020-05-16 12:49] LABS: Appearance, Urine Turbid (Clear); Blood, Urine 5+ (Neg); Color, Urine Brown (P-Yellow); Glucose Qualitative, Urine Neg (Neg); Ketones, Urine Neg (Neg); Leukocyte Esterase, Urine 2+ (Neg); Nitrite, Urine Pos (Neg); Protein, Urine 3+ (Neg); Urobilinogen, Urine NORM (Normal)
[2020-05-16 13:02] LABS: Bilirubin, Urine 1+ (Neg)
[2020-05-16 13:05] LABS: Bacteria Mod /hpf; Red Blood Cells, Urine TNTC /hpf (0-2); Squamous Epithelial Cells Rare /hpf (Few)
--- NOTE | 2020-05-16 18:54 | NUR ---
PATIENT INCREASINGLY AGITATED, TRYING TO GET OUT OF BED, SAYING THAT HE NEEDS TO GO TO THE BATHROOM. I NOTICED THAT THE LOPEZ WAS NO LONGER DRAINING. BLOOD NOTED AROUND URETHRA. MANUAL BLADDER IRRIGATION PERFORMED, 60 CC'S OF CLOTS REMOVED, STERILE TECHNIQUE MAINTAINED. LOPEZ NOW DRAINING AND CONTINUOUS BLADDER IRRIGATION CONTINUES, RATE INCREASED. PATIENT NOW RESTING IN BED. CALL LIGHT IN REACH. BED ALARM ON.
--- NOTE | 2020-05-16 19:29 | NUR ---
SHIFT SUMMARY: PATIENT VERY CONFUSED AND ANGRY AT BEGINNING OF SHIFT. BECAME LESS ANGRY AND MORE COOPERATIVE THE DAY WENT ON. ABLE TO TAKE HIS PILLS WHOLE WITH WATER. SOFT WRIST RESTRAINTS REMOVED AT 1225. REPOSITIONED Q2H. PREVENTATIVE DRESSING PLACED TO COCCYX. CONTINUOUS BLADDER IRRIGATION INFUSING. HAD TO MANUALLY IRRIGATE LOPEZ X1 THIS EVENING. FLUIDS AND ABX STARTED. CALL LIGHT IN REACH. BED ALARM ON.
[2020-05-17 03:47] LABS: BASOPHILS ABSOLUTE AUTO 0.05 K/mm3 (0.00-0.23); BASOPHILS PERCENT AUTO 0 % (0-2); EOSINOPHILS ABSOLUTE AUTO 0.04 K/mm3 (0.00-0.68); EOSINOPHILS PERCENT AUTO 0 % (0-6); Hematocrit 44.4 % (37.0-53.0); Hemoglobin 14.4 g/dL (13.5-17.5); IMMATURE GRAN ABSOLUTE AUTO 0.22 K/mm3 (0.00-0.10); IMMATURE GRAN PERCENT AUTO 1 % (0-1); LYMPHOCYTES ABSOLUTE AUTO 1.83 K/mm3 (0.84-5.20); LYMPHOCYTES PERCENT AUTO 8 % (21-46); MONOCYTES PERCENT AUTO 9 % (4-13); Mean Corpuscular HGB 27.9 pg (26.0-34.0); Mean Corpuscular HGB Conc 32.4 g/dL (31.5-36.5); Mean Corpuscular Volume 86 fL (80-100); Mean Platelet Volume 10.1 fL (9.1-12.4); NEUTROPHILS ABSOLUTE AUTO 18.32 K/mm3 (1.96-9.15); NEUTROPHILS PERCENT AUTO 82 % (41-73); Platelet Count 302 K/mm3 (150-400); RDW Coefficient Variation 14.4 % (11.7-14.2); RDW Standard Deviation 45.3 fL (35.1-46.3); Red Blood Cell Count 5.17 M/mm3 (4.30-5.90); White Blood Cell Count 22.46 K/mm3 (4.00-11.30)
[2020-05-17 04:16] LABS: Albumin, Blood 3.9 g/dL (3.4-5.0); Albumin/Globulin Ratio 1.1 (0.8-1.8); Bun/Creatinine Ratio 21.7 (12.0-20.0); Creatinine, Blood 1.75 mg/dL (0.60-1.20); Globulin, Blood 3.6 g/dL (2.2-4.0); Potassium, Blood 4.3 mmol/L (3.5-5.5); Thyroid Stimulating Hormone 0.866 uIU/mL (0.360-4.800); Total Protein, Blood 7.5 g/dL (6.4-8.2)
--- NOTE | 2020-05-17 05:30 | NUR ---
SHIFT SUMMARY PT WAS ALERT AND DISORIENTED T/O THE NIGHT, DID NOT KNOW WHERE HE WAS AND HAD NO SITUATIONAL AWAERNESS. HE THOUGHT HE WAS HOLDING THINGS IN HIS HANDS SUCH DRINKING A CUP OF WATER BUT HIS HANDS WERE EMPTY. STATED SEEING THINGS ON THE CEILING AND [place] AND POINTING AT THEM. PT WAS ANGERY WITH STAFF AND COMBATIVE BUT LESS SO THAN PREVIOUS NIGHT. CONTINOUS BLADDER IRRIGATION T/O THE NIGHT WITH URINE BECOMING MORE CLEAR BY AM. PT COMPLAINED OF PAIN IN LOWER ABD, BLADDER WAS FLUSHED AND MINIMAL SMALL CLOTS CAME OUT, PAIN STILL PERSISTED WITH PT BECOMING MORE AGITATED, 3MG MORPHINE ADMINISTERED AND PT COMFORTABLE AND ASLEEP REST OF MORNING. BLOOD AROUND CATH AT URETHRA, CATH CLEANED AND MORE BLOOD WAS PRESENT T/O THE NIGHT. PT WAS ABLE AND WILLING TO TAKE PM PO MEDICATION. WILL CONTINUE TO MONITOR UNTIL SHIFT CHANGE.
--- NOTE | 2020-05-17 16:36 | NUR ---
SHIFT SUMMARY PT A&O TO SELF/PERSON; FAMILY; AND TIME (STATES ITS MAY 4H, UNSURE OF DAY). PT 1 PERSON ASSIST TO BATHROOM;PT RESTING IN BED FOR MAJORITY OF SHIFT. PT REPORTS BLADDER SPASMS; LOPEZ IN PLACE WITH CONTINUOUS IRRIGATION; MANUAL IRRIGATION SEVERAL TIMES T/O SHIFT WITH LARGE AMOUNTS OF SMALL CLOTS BEING RELEASED; LESS NOTED LATER IN THE DAY. PT BP HYPOTENSIVE THIS AM; NOTIFIED DR ARTHUR OF BP; NEW ORDER FOR BOLUS AND NOTIFED OF BP IMMEDICATELY FOLLOWING BOLUS; NO NEW ORDERS. PT TRENDING UP; OTHER VSS. MINIMAL OUTPUT NOTED; NOTIFIED DR ARTHUR; NEW ORDERS ENTERED. NO OTHER ACUTE CHANGES NOTED. WILL CONTINUE TO MONITOR UNTIL REPORT GIVEN TO ONCOMING RN.
[2020-05-18 03:36] LABS: BASOPHILS ABSOLUTE AUTO 0.05 K/mm3 (0.00-0.23); BASOPHILS PERCENT AUTO 0 % (0-2); EOSINOPHILS ABSOLUTE AUTO 0.45 K/mm3 (0.00-0.68); EOSINOPHILS PERCENT AUTO 3 % (0-6); Hematocrit 42.2 % (37.0-53.0); Hemoglobin 13.5 g/dL (13.5-17.5); IMMATURE GRAN ABSOLUTE AUTO 0.08 K/mm3 (0.00-0.10); IMMATURE GRAN PERCENT AUTO 0 % (0-1); LYMPHOCYTES ABSOLUTE AUTO 2.06 K/mm3 (0.84-5.20); LYMPHOCYTES PERCENT AUTO 11 % (21-46); MONOCYTES ABSOLUTE AUTO 1.59 K/mm3 (0.16-1.47); MONOCYTES PERCENT AUTO 9 % (4-13); Mean Corpuscular HGB 28.1 pg (26.0-34.0); Mean Corpuscular Volume 88 fL (80-100); Mean Platelet Volume 10.2 fL (9.1-12.4); NEUTROPHILS ABSOLUTE AUTO 13.77 K/mm3 (1.96-9.15); NEUTROPHILS PERCENT AUTO 77 % (41-73); Platelet Count 299 K/mm3 (150-400); RDW Coefficient Variation 14.5 % (11.7-14.2); RDW Standard Deviation 46.4 fL (35.1-46.3)
[2020-05-18 03:56] LABS: Albumin, Blood 3.4 g/dL (3.4-5.0); Albumin/Globulin Ratio 0.9 (0.8-1.8); Bilirubin, Total 1.3 mg/dL (0.1-1.0); Bun/Creatinine Ratio 29.1 (12.0-20.0); Calcium, Blood 8.8 mg/dL (8.5-10.1); Creatinine, Blood 1.48 mg/dL (0.60-1.20); Globulin, Blood 3.6 g/dL (2.2-4.0); Magnesium, Blood 2.6 mg/dL (1.6-2.4)
--- NOTE | 2020-05-18 04:52 | NUR ---
SHIFT SUMMARY PT WAS MUCH MORE CALM TONIGHT THAN PREVIOUS 2 PM SHIFTS. PT WAS ABLE TO ANSWER SIMPLE QUESTIONS AND FOLLOW BASIC COMMANDS. PT STILL CONFUSED, AND DELIRIOUS, GRABBING AT THINGS THAT ARE NOT THERE, MUMBLING INCOHERENT PHRASES AND TALKING TO PEOPLE THAT ARE NOT IN THE ROOM. CONTINOUS BLADDER IRRIGATION T/O THE NIGHT, MANY LARGE CLOTS PULLED OUT WITH MANUAL IRRIGATION AT BEGINING OF SHIFT, IRRIGATION RATE INCREASED AND NO MORE CLOTS WERE PULLED OUT. PT SLEPT MUCH MORE OF THE NIGHT THAN PREVIOUS NIGHTS. PT STATED HAVING LESS PAIN AND APPEARED MUCH MORE COMFORTABLE THAN PREVIOUS NIGHTS. PT DID HAVE PAIN WITH MANUAL IRRIGATION. HR AND BP STABLE. WILL CONTINUE TO MONITOR UNTIL SHIFT CHANGE. BED IN LOW POSITION AND CALL LIGHT WITHIN REACH.
--- NOTE | 2020-05-18 16:22 | NUR ---
Initial palliative care consult: Nito is an 85 year old with a history of CHF, a-fib, BPH, urinary retention and possible dementia. He was admitted on 05/13/20 with increasing SOB and constipation. He is currently in PCU 11 with transfer orders to go to medical floor when bed is available. Nito is sleeping in the chair when this consumer loan underwriter arrived. He awakened when his name was called, however he is so sleepy he cannot keep his eyes open, his upper dentures are falling out as well when he drifts to sleep. He briefly states that he has a lowery catheter in place, however he falls asleep mid sentence. Asked him if it was ok to call his dtr, Shonda, who is his POA. He stated yes and fell back to sleep. Received an update from nursing and chart reviewed. Contacted the medical records department at the [place] and obtained a copy of his advanced directive. LM for Shonda to contact this consumer loan underwriter for advanced care planning and to see if pt has a POLST form at home. He currently has some [place] service connection listed in a CM note. Will plan to speak with Shonda re: POLST. Once Nito is more awake and alert he would benefit from a discussion on a future plan of care and POLST completion if he doesn't already have one. EF is 15-20%, and per gas well pumper note pt didn't want any aggressive or invasive cardiac procedures done. PC to continue to follow for symptom management and advanced care planning.
--- NOTE | 2020-05-18 18:34 | NUR ---
SUMMARY PT HAS BEEN SLEEPY MOST OF THE DAY BUT WILL AWAKEN WITH STIMULATION. HE IS NOW MEDICAL STATUS W/NO TELE, CONT BLADDER IRRIGATION HAS BEEN STOPPRED, URINE REMAINS CLEAR YELLOW, NO CLOTS NOTED , LOPEZ PATENT, PT DENIES PAIN, SOB, VSS, PT HAS BEEN COOPERATIVE WITH CARE, ASKING APPROPRIATE QUESTIONS, HE WORKED WITH PHYSICAL THERAPY & SAT IN THE CHAIR FOR AWHILE. PT'S DAUGHTER IN TO VISIT TODAY. CALL LIGHT IN REACH, TM,
[2020-05-19 05:25] LABS: BASOPHILS ABSOLUTE AUTO 0.05 K/mm3 (0.00-0.23); BASOPHILS PERCENT AUTO 0 % (0-2); EOSINOPHILS ABSOLUTE AUTO 0.44 K/mm3 (0.00-0.68); EOSINOPHILS PERCENT AUTO 3 % (0-6); Hemoglobin 13.1 g/dL (13.5-17.5); IMMATURE GRAN ABSOLUTE AUTO 0.07 K/mm3 (0.00-0.10); IMMATURE GRAN PERCENT AUTO 1 % (0-1); LYMPHOCYTES ABSOLUTE AUTO 2.27 K/mm3 (0.84-5.20); LYMPHOCYTES PERCENT AUTO 15 % (21-46); MONOCYTES ABSOLUTE AUTO 1.38 K/mm3 (0.16-1.47); MONOCYTES PERCENT AUTO 9 % (4-13); Mean Corpuscular HGB 28.2 pg (26.0-34.0); Mean Corpuscular HGB Conc 32.8 g/dL (31.5-36.5); Mean Corpuscular Volume 86 fL (80-100); Mean Platelet Volume 10.4 fL (9.1-12.4); NEUTROPHILS ABSOLUTE AUTO 11.13 K/mm3 (1.96-9.15); NEUTROPHILS PERCENT AUTO 73 % (41-73); Platelet Count 322 K/mm3 (150-400); RDW Coefficient Variation 14.4 % (11.7-14.2); RDW Standard Deviation 44.6 fL (35.1-46.3); Red Blood Cell Count 4.65 M/mm3 (4.30-5.90); White Blood Cell Count 15.34 K/mm3 (4.00-11.30)
[2020-05-19 05:37] LABS: Bun/Creatinine Ratio 26.4 (12.0-20.0); Creatinine, Blood 1.29 mg/dL (0.60-1.20); Potassium, Blood 4.2 mmol/L (3.5-5.5)
--- NOTE | 2020-05-19 08:10 | NUR ---
SHIFT SUMMARY. PT A/OX3-4, VSS. NO ACUTE CHANGES THIS SHIFT. LOPEZ CATH TO GRAVITY DRAIN W/500ML OF EMMANUELLE COLORED URINE OUT; STAT LOCK IN PLACE. LAVELLE/CATH CARE PREFORMED BY TECH. PT DENIES SOB OR CP; SPO2 AT 95% ON RA. IS ABLE TO REPOSITION SELF IN BED. REFUSED SCD'S DESPITE EDUCATION. SILVERIO PO INTAKE, DENIES N/V. HOURLY ROUNDING AND ADL ASSISTANCE PRN T/O SHIFT; MEDITECH DOWN TIME TONIGHT. PT APPEARS TO HAVE RESTED WELL. COOPERATIVE AND ABLE TO FOLLOW DIRECTIONS. REPORT GIVEN TO DAY RN.
--- NOTE | 2020-05-19 09:56 | NUR ---
ASSUME CARE THIS AM: PT IN BED RESTING WHEN RECEIVED REPORT. PT IS ALERT ABLE TO STATE NAME AND , FORGETS WHERE HE'S AT, FORGETFUL. VITALS HRR 80'S, BP SYSTOLIC 130'S, SATS ABOVE 95% ON RA, AFEBRILE. NO ACUTE CHANGE AT THIS TIME, PT IS OFF OF RESTRAINTS BED ALARM ON FOR SAFETY. TOOK MEDS WITHOUT ISSUES THIS MORNING. WILL MONITOR
--- NOTE | 2020-05-19 14:32 | NUR ---
Spiritual care visit conducted. Patient is sitting up in bed and alert. Patient's daughter, Shonda, is bedside. 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 Patient has a long list of careers and does not plan to stop now. Patient tells me about his medical issues and what his next steps are. I listen empathically, normalize patient's experience and provide companionship and a calming presence. Patient responds well and shows signs of an elevated mood. I will continue to remain available to patient and family.
--- NOTE | 2020-05-19 15:00 | NUR ---
PT ARRIVED TO ROOM 338 FROM PCU. SETTLED IN TO ROOM AND BELONGINGS PLACED WITHIN REACH. DENIES PAIN OR RESP DISTRESS. LOPEZ IN PLACE WITH EMMANUELLE TO RED TINGED URINE.
--- NOTE | 2020-05-19 15:18 | NUR ---
REPORT GIVEN TO KALYANI YANG, PT TRANSFERRED TO ROOM 338. ALL BELONGINGS SENT WITH PT. NO ACUTE CHANGE PRIOR TO TRANSPORT.
--- NOTE | 2020-05-19 18:20 | NUR ---
SHIFT SUMMARY PT HAS HAD A COUPLE EPISODES OF FORGETFULNESS. AT ONE POINT HE THOUGHT HE SAW A BUG ON SEAT NEXT TO BED BUT NOT SEEN BY STAFF. DAUGHTER HERE TO SHORT TIME. SHE TOOK HIS BAG WITH WALLET, WATCH, AND KEYS HOME. IV WAS INFILTRATED WHEN ANTIBIOTIC STARTED. SPOKE WITH MD ABOUT NEED FOR CONTINUED NEED FOR IV AND ANTIBIOTICS. SEE NEW ORDERS. WILL REPORT CONDITION TO ONCOMING SHIFT.
--- NOTE | 2020-05-19 19:25 | NUR ---
ASSUMED CARE. JANNA IS ALERT ORIENTED TO SELF AND PLACE. BUT HE THINKS THE OUTGOING NURSE AND I WERE IN HIS HOME TALKING ABOUT TAKING HIS BELONGINGS WHEN I CAME ON SHIFT. HE GOT VERY AGGITATED, STAYING HE WAS VERY ANGRY AND WAS GOING TO HAVE US ARRESTED. PATIENT HAD CALLED 911 FROM HIS CELL PHONE TELLING THEM THERE WAS SOMEONE IN HIS HOME, GOT ON PHONE AND INFORMED THEM HE WAS CONFUSED AND CALLING FROM THE HOSPITAL. HE EVEN CALLED HIS DAUGHTER REPORTING THE SAME THING. AFTER REPORT ATTEMTPED TO TALK TO HIM WITH [employer] OFFICER IN THE ROOM. HE WAS A LITTLE MORE CALMED DOWN BUT HOLDING THE CALL LIGHT TO HIS EAR AND STILL THINKING I WAS IN HIS HOME AND HE WAS UPSET ABOUT IT. TRIED TO RE-ORIENT HIM LETTING HIM KNOW THAT HE WAS IN THE HOSPITAL. BUT HE THINKS THE [place]WAY IS HIS APARTMENT. WILL CALL HIS DAUGHTER TO TALK TO HER. BED ALARM IS ON.
--- NOTE | 2020-05-19 19:35 | NUR ---
JEISON MILKING MACHINE OPERATOR SAT DOWN WITH PATIENT AND CONTINUED TO INFORM HIM THAT THIS IS THE HOSPITAL AND THAT WE DON'T KNOW WHAT IS OCCURING AT HIS HOUSE. THAT WE WERE JUST COMING ONTO SHIFT AND GETTING REPORT. HE STILL IS CONFUSED BUT HAS CALMED DOWN SOME. STILL NO ASSESSMENT.
--- NOTE | 2020-05-19 20:59 | NUR ---
DON HAS CALMED DOWN AND DID TAKE HIS MEDICATION FOR ME. HE STILL BELEIVES THERE IS SOMETHING GOING ON AT HIS HOME BUT IS REALIZING THAT HE MAY HAVE BEEN WRONG. TRIED TO KEEP THE CURTAIN OPEN SO HE CAN SEE THE PEOPLE OUT IN THE HALLWAY AND SHOW HIM HE IS IN THE HOSPITAL. THIS SEEMS TO BE WORKING.
--- NOTE | 2020-05-20 03:58 | NUR ---
SPOKE TO DR. TYLER INFORMED OF THE PATIENT VERY CONFUSED AND HAS CALLED [employer] [employer] [employer]/911 5 TIMES NOW TELLING THEM THAT WE ARE BREAKING INTO HIS HOME. HE UNDERSTANDS HE IS IN THE HOSPTIAL BUT HE DOES NOT COMPERHEND THAT THE [place] IS NOT HIS HOME. HE SEE'S PEOPLE WALKING AROUND AND THINKS THEY ARE IN HIS HOME. HE IS HULLICINATING AND HER THINGS. HE WILL NOT PUT HIS PHONE AWAY. ORDER FOR HALDOL ORDERED.
--- NOTE | 2020-05-20 04:58 | NUR ---
SHIFT SUMMARY: JANNA HAS HAD A ROUGH NIGHT. SHIFT STARTED WITH A PHONE CALL TO 911 AND HIM THINKING THAT THE OUTGOING RN AND I WERE IN HIS HOUSE WHEN WE WERE IN THE TURNER. ORIENTED TO SELF AND PLACE BUT VERY DISPLACED. THROUGHOUT THE NIGHT THIS PROGRESSED, POSSIBLE SUNDOWNERS. HE INSISTED THERE WERE PEOPLE STEALING HIS THINGS AT HIS HIM, CALLED THE POLICE AT LEAST 5 TIMES THAT i KNOW OF. HE CALLED HIS NEIGHBORS, FRIENDS AND FAMILY WELL. HE WOULD NOT GIVE UP HIS PHONE. SEREQUEL WAS GIVEN, WHICH HE SEEMED TO FIGHT. THEN ZYPREXA 10MG IM GIVEN, STILL NO RESULTS OF HIM CALMING DOWN, HE EVEN THREATED US STAYING HE HAD PEOPLE THAT WILL TAKE ME OUT. HOSPITALIST CALLED ORDER FOR HALDOL WAS RECEIVED. 3MG IM HALDOL GIVEN. HAD TO PUT HIS CELL PHONE AWAY IN THE CLOSET AND UNPLUG THE ROOM PHONE HE WOULD NOT STOP CALLING 911. HE CONTINUOUS TO FIGHT FALLING ASLEEP WHICH IS MAKING THE AGGITATION WORSE. HE GETS UP FROM THE BED PULLING ON HIS CATHETER SEVERAL TIMES, FEW BLOOD CLOTS HAVE BEEN NOTED. WE HAVE TRIED MUSIC, WARM BLANKET, DARKENING THE ROOM, TO HAVEING IT LIGHT, EVEN STAYING IN THE ROOM WITH HIM. NOTHING HAS WORKED TO RELAX HIM SO HE WILL FALL ASLEEP. HE CONTINUES TO HAVE AUDITORY AND VISUAL HULLUCINATIONS SUCH WATER ON THE FLOOR, THINKING A PIPE BURSTED, AND IT WAS JUST THE FLOORS BEING SHINY. WILL CONTINUE TO MONITOR, CATHETER REMAINS PATENT AT THIS TIME, DRAINING EMMANUELLE URINE. BED ALARM IS ON. CALL LIGHT IN REACH.
--- NOTE | 2020-05-20 10:00 | NUR ---
PT HAS BEEN SLEEPING THIS MORNING. OPENS HIS EYS BRIEFLY WHEN IN ROOM OR REPOSITIONING PT BUT FALLS BACK ASLEEP. ABLE TO COMPLETE A LIMITED ASSESSMENT WHILE HE IS SLEEPING.
--- NOTE | 2020-05-20 18:02 | NUR ---
SHIFT SUMMARY PT AROUSED LATE THIS AFTERNOON AND ABLE TO MAKE HIS NEEDS KNOWN. WAS ABLE TO SAY IT WAS Monday. DR. DELGADO IN TO SEE PT THIS AFTERNOON JUST AFTER HE ROUSED. HAS BEEN COOPERATIVE SINCE AWAKENED. REPORTS HE WILL STILL BE DIFFICULT LONG HE HAS A CATHETER. HAD CLOTS IN TUBING THIS MORNING BUT IT HAS CONTINUED TO DRAIN. WILL IRRIGATE NEEDED. WILL MONITER FOR CHANGE IN MENTATION AND BEHAVIOR.
--- NOTE | 2020-05-20 20:45 | NUR ---
pt transfered to rm [id number]. report given to marco antonio lerma rn who will assume pt care.
--- NOTE | 2020-05-20 21:50 | NUR ---
CHANGED OUT LOPEZ BAG AND PLACED A NEW THREE WAY STATLOCK TO L INNER THIGH. IRRIGATED LOPEZ, SMALL BLOOD CLOTS NOTED. DRAINING EMMANUELLE COLOR URINE WITH SMALL TINY BLOOD CLOTS. NO OTHER NEEDS. BED ALARM ON. CALL LT IN REACH.
--- NOTE | 2020-05-21 04:29 | NUR ---
SHIFT SUMMARY: TRANSFERRED FROM 338. ALERT, COOPERATIVE WITH CARE. SOME CONFUSION DURING NIGHT HOWEVER, REDIRECTED WELL. NO PRN'S FOR AGITATION GIVEN. IRRIGATED LOPEZ DURING SHIFT, NOTED, TINY BLOOD CLOTS MIXED IN URINE. NO COMPLAINTS OF PAIN, NAUSEA OR SOB. RESTED OFF AND ON. O2 SATS 90'S ON BIOX. NO ACUTE CHANGES. WILL CONTINUE TO MONITOR AND PROVIDE CARE UNTIL SHIFT REPORT.
[2020-05-21 05:25] LABS: Hematocrit 40.9 % (37.0-53.0); Hemoglobin 13.1 g/dL (13.5-17.5); Mean Corpuscular HGB 27.7 pg (26.0-34.0); Mean Corpuscular Volume 87 fL (80-100); Mean Platelet Volume 9.8 fL (9.1-12.4); Platelet Count 350 K/mm3 (150-400); RDW Coefficient Variation 14.2 % (11.7-14.2); RDW Standard Deviation 45.1 fL (35.1-46.3); Red Blood Cell Count 4.73 M/mm3 (4.30-5.90); White Blood Cell Count 11.93 K/mm3 (4.00-11.30)
[2020-05-21 05:51] LABS: Albumin, Blood 3.3 g/dL (3.4-5.0); Anion Gap 9 mmol/L (6-16); Blood Urea Nitrogen 26 mg/dL (8-24); CO2, Blood 21 mmol/L (21-32); Calcium, Blood 8.9 mg/dL (8.5-10.1); Chloride, Blood 107 mmol/L (98-108); Creatinine, Blood 1.13 mg/dL (0.60-1.20); Glomerular Filtration Rate >60 (60-); Glucose, Blood 120 mg/dL (70-99); Phosphorus, Blood 3.1 mg/dL (2.5-4.9); Potassium, Blood 4.1 mmol/L (3.5-5.5); Sodium, Blood 137 mmol/L (136-145)
--- NOTE | 2020-05-21 16:40 | NUR ---
SHIFT SUMMARY PT SLEEPING AT START OF SHIFT. WOKE EASILY FOR CARE, BUT DIDN'T WANT TO EAT MUCH FOR BREAKFAST. [address] L[address] CATH IN PLACE, DRAINING CL YELLOW. PER REPORT, PLACED FOR RETENSION; PREVIOUSLY SOME SMALL CLOTS. MEDS WHOLE WITH H2O. LUNGS T/O DIMINISHED WITH OCCASSIONAL COARSE COUGH. MEPILEX ON COCCYX, PREVENTIVE. PT CONFUSED AND DISORIENTED AT TIMES. HAS BEEN PLEASANT AND CO-OP WITH CARE. BED ALARM ON FOR SAFETY. CALL LT IN REACH.
--- NOTE | 2020-05-22 05:00 | NUR ---
Rn summary: Patient was cooperative and pleasant during assessment and med administration. Pt has had 2 episodes of confusion but was easily redirectable. Pt has rested most of shift. Boston cath has remained patent, sl blush colored urine, barely pink. No clots seen. Pt has been encouraged to drink fluids but has only taken 240cc with assist during the shift. Bed alarm is on. Pt did try and get out of bed x1. Pt is tall and needs repositioning q 2 hours in bed. Pt has had no c/o pain. Call light remains in reach.
--- NOTE | 2020-05-22 06:48 | NUR ---
0600, Pt trying to get out of bed, blood around meatus. Esthela area cleaned and new attends applied. Pt still with blush urine in tubing, continues to drain. Pt repositioned and back rub given. Will continue to monitor and report to oncoming shift.
--- NOTE | 2020-05-22 18:59 | NUR ---
spoke with daughter last week to review pallitaive care note and visit. Will review with progressive care manager and PT pt progress will again attemtp advance directive and polst.
--- NOTE | 2020-05-22 19:33 | NUR ---
SHIFT SUMMARY PT AWAKE AT START OF SHIFT, RESTING QUIETLY IN BED. PT PLEASANT AND CO-OP TODAY. DID C/O L SIDE PAIN LATER THIS AM. MEDICATED WITH TYLENOL. PT LATER TOLD DR HUERTA HE THOUGHT HE MIGHT BE GETTING PNM AGAIN. LLL WITH FINE CRACKLES T/O, OTHERWISE LUNGS ARE CLEAR. PT DOES HAVE OCCASSIONAL NPC. POSSIBLY PULLED A SIDE MUCSLE WHEN COUGHING. DR HUERTA ORDERED CXR TO R/O PNM. PT'S DAUGHTER HERE THIS AM AND AGAIN TONIGHT DURING DINNER. PT ENJOYS HER COMPANY. CONTINOUS BIOX OFF DURING THE DAY, WHILE PT AWAKE, IT MAKES IT DIFFICULT TO WORK WITH PT/OT AND DECREASES MOBILITY BEING TIED DOWN. PT'S BIOX WNL'S ALL DAY; 98% ON RA. 3 WAY LOPEZ TO GRAVITY, PATENT. BED ALARM ON FOR SAFETY. CALL LT IN REACH.
[2020-05-23 05:26] LABS: BASOPHILS ABSOLUTE AUTO 0.06 K/mm3 (0.00-0.23); BASOPHILS PERCENT AUTO 0 % (0-2); EOSINOPHILS ABSOLUTE AUTO 0.13 K/mm3 (0.00-0.68); EOSINOPHILS PERCENT AUTO 1 % (0-6); Hematocrit 43.2 % (37.0-53.0); Hemoglobin 13.9 g/dL (13.5-17.5); IMMATURE GRAN ABSOLUTE AUTO 0.12 K/mm3 (0.00-0.10); IMMATURE GRAN PERCENT AUTO 1 % (0-1); LYMPHOCYTES ABSOLUTE AUTO 2.15 K/mm3 (0.84-5.20); LYMPHOCYTES PERCENT AUTO 10 % (21-46); MONOCYTES ABSOLUTE AUTO 2.16 K/mm3 (0.16-1.47); MONOCYTES PERCENT AUTO 10 % (4-13); Mean Corpuscular HGB 27.5 pg (26.0-34.0); Mean Corpuscular HGB Conc 32.2 g/dL (31.5-36.5); Mean Corpuscular Volume 86 fL (80-100); Mean Platelet Volume 10.3 fL (9.1-12.4); NEUTROPHILS ABSOLUTE AUTO 17.52 K/mm3 (1.96-9.15); NEUTROPHILS PERCENT AUTO 79 % (41-73); Platelet Count 388 K/mm3 (150-400); RDW Coefficient Variation 13.9 % (11.7-14.2); RDW Standard Deviation 43.5 fL (35.1-46.3); Red Blood Cell Count 5.05 M/mm3 (4.30-5.90); White Blood Cell Count 22.14 K/mm3 (4.00-11.30)
--- NOTE | 2020-05-23 05:29 | NUR ---
SHIFT SUMMARY- PT. A&O WITH INTERMITTENT CONFUSION. HAD NO ACUTE EVENTS OVERNIGHT. ASLEEP MOST OF THE SHIFT. NO APPARENT DISTRESS NOTED. 3 WAY LOPEZ CATHETER PATENT AND DRAINING EMMANUELLE COLOR URINE. NO BLOOD NOTED IN CATHETER LAST NIGHT. REPOSITIONED PRN AND FOR COMFORT. NO COMPLAINTS T/O THE SHIFT. PT. AWAITING ON PLACEMENT. CALL LIGHT WITHIN REACH, SIDE RAILS UPX2, AND BED ALARM ON FOR SAFETY. WILL CONT TO MONITOR.
[2020-05-23 05:53] LABS: Bun/Creatinine Ratio 24.4 (12.0-20.0); Calcium, Blood 9.3 mg/dL (8.5-10.1); Creatinine, Blood 1.27 mg/dL (0.60-1.20); Potassium, Blood 4.5 mmol/L (3.5-5.5)
--- NOTE | 2020-05-23 16:57 | NUR ---
Shift Summary A/Ox2 to hospital and self. Unaware of situation, patient thought it was the year 1983. Daugther came in to spend a good portion of the day at the bedside. Likes to swing legs over the edge of bed, but easily redirectable. Nystatin to groin area, this has been improving. Boston remains patent and draining, minimal clot sediments, otherwise color is jenny with tint of red. No complaints of pain, abdominal tenderness. Provided bowel care with prn meds which was effective. Had small bowel movement today, soft and WNL. Appetite is good. Cooperative with care. Will continue to monitor.
[2020-05-24 05:57] LABS: BASOPHILS ABSOLUTE AUTO 0.06 K/mm3 (0.00-0.23); BASOPHILS PERCENT AUTO 0 % (0-2); EOSINOPHILS ABSOLUTE AUTO 0.09 K/mm3 (0.00-0.68); EOSINOPHILS PERCENT AUTO 0 % (0-6); Hematocrit 40.3 % (37.0-53.0); Hemoglobin 13.2 g/dL (13.5-17.5); IMMATURE GRAN ABSOLUTE AUTO 0.24 K/mm3 (0.00-0.10); IMMATURE GRAN PERCENT AUTO 1 % (0-1); LYMPHOCYTES ABSOLUTE AUTO 2.72 K/mm3 (0.84-5.20); LYMPHOCYTES PERCENT AUTO 12 % (21-46); MONOCYTES ABSOLUTE AUTO 2.28 K/mm3 (0.16-1.47); MONOCYTES PERCENT AUTO 10 % (4-13); Mean Corpuscular HGB 28.1 pg (26.0-34.0); Mean Corpuscular HGB Conc 32.8 g/dL (31.5-36.5); Mean Corpuscular Volume 86 fL (80-100); Mean Platelet Volume 10.1 fL (9.1-12.4); NEUTROPHILS ABSOLUTE AUTO 16.51 K/mm3 (1.96-9.15); NEUTROPHILS PERCENT AUTO 75 % (41-73); Platelet Count 433 K/mm3 (150-400); RDW Coefficient Variation 14.2 % (11.7-14.2); RDW Standard Deviation 43.8 fL (35.1-46.3); Red Blood Cell Count 4.69 M/mm3 (4.30-5.90)
--- NOTE | 2020-05-24 06:04 | NUR ---
SHIFT SUMMARY- NO ACUTE CHANGES OVERNIGHT. PT. SLEPT MOST OF THE SHIFT, NO APPARENT DISTRESS NOTED. ASSISTED 1X OOB ONTO BSC, HAD BM. LOPEZ CATHETER PATENT AND DRAINING. PT. DENIED FURTHER NEEDS. CALL LIGHT WITHIN REACH, SIDE RAILS UPX3, AND BED ALARM ON. WILL CONT TO MONITOR.
[2020-05-24 06:17] LABS: Bun/Creatinine Ratio 22.5 (12.0-20.0); Calcium, Blood 9.2 mg/dL (8.5-10.1); Potassium, Blood 4.2 mmol/L (3.5-5.5)
--- NOTE | 2020-05-24 10:07 | NUR ---
NYSTATIN CHANGED TO PRN PER DR. HUERTA. SKIN IN GROIN AREA HAS IMPROVED AND IS NO LONGER RED/YEASTY
--- NOTE | 2020-05-24 16:44 | NUR ---
Shift Summary Patient was quite tired during the day but still requests for "something to sleep" for which this RN denied. Did not have an appetite today, declined breakfast and lunch. Up to bedside commode x 2 max assist, patient had decent size bowel movement. Medicated for L sided abdominal pain per EMAR, after the bowel movement, patient states pain relieved. Daughter has been at the bedside since this afternoon. Boston patent and draining. Patient was requesting [employer] for dinner, however, d/t high sodium levels in fried chicken, this RN did not allow daughter to serve patient with [employer], daughter informed. Otherwise, no acute changes. Will continue to monitor.
--- NOTE | 2020-05-25 04:49 | NUR ---
SHIFT SUMMARY- PT. SLEEPING COMFORTABLY DURING THE NIGHT. NO APPARENT DISTRESS NOTED, BIOX IN PLACE ALL NIGHT. ALERT W/INTERMITTENT CONFUSION. C/O MILD BACK PAIN, REPOSITIONED FOR COMFORT AND PRN. DENIED ANY NEEDS T/O THE SHIFT. LOPEZ CATHETER REMAINS IN PLACE, PATENT, AND DRAINING. CALL LIGHT WITHIN REACH, SIDE RAILS UPX2, AND BED ALARM ON FOR SAFETY. WILL CONT TO MONITOR.
[2020-05-25 05:24] LABS: BASOPHILS ABSOLUTE AUTO 0.05 K/mm3 (0.00-0.23); BASOPHILS PERCENT AUTO 0 % (0-2); EOSINOPHILS ABSOLUTE AUTO 0.45 K/mm3 (0.00-0.68); EOSINOPHILS PERCENT AUTO 3 % (0-6); Hematocrit 38.2 % (37.0-53.0); Hemoglobin 12.7 g/dL (13.5-17.5); IMMATURE GRAN ABSOLUTE AUTO 0.19 K/mm3 (0.00-0.10); IMMATURE GRAN PERCENT AUTO 1 % (0-1); LYMPHOCYTES ABSOLUTE AUTO 2.05 K/mm3 (0.84-5.20); LYMPHOCYTES PERCENT AUTO 12 % (21-46); MONOCYTES ABSOLUTE AUTO 1.62 K/mm3 (0.16-1.47); MONOCYTES PERCENT AUTO 9 % (4-13); Mean Corpuscular HGB Conc 33.2 g/dL (31.5-36.5); Mean Corpuscular Volume 84 fL (80-100); Mean Platelet Volume 9.9 fL (9.1-12.4); NEUTROPHILS PERCENT AUTO 76 % (41-73); Platelet Count 386 K/mm3 (150-400); RDW Coefficient Variation 13.8 % (11.7-14.2); RDW Standard Deviation 42.5 fL (35.1-46.3); Red Blood Cell Count 4.54 M/mm3 (4.30-5.90); White Blood Cell Count 17.76 K/mm3 (4.00-11.30)
[2020-05-25 05:45] LABS: Bun/Creatinine Ratio 25.9 (12.0-20.0); Calcium, Blood 9.2 mg/dL (8.5-10.1); Creatinine, Blood 2.24 mg/dL (0.60-1.20); Potassium, Blood 4.4 mmol/L (3.5-5.5)
--- NOTE | 2020-05-25 09:11 | NUR ---
LEFT NOTE ON VOICE MAIL. GETS LOPRESSOR 150MG , B.P. 105/50 AND PULSE 61. STILL WANT PATIENT TO HAVE? AWAITING ORDERS.
--- NOTE | 2020-05-25 10:13 | NUR ---
LEFT VOICE MAIL MESSAGE ON PHONE -PATIENT WITH HEART BURN AND NORMALLY TAKES ROLAIDS AT HOME. COULD WE GET TUMS? AWAITING ORDERS
--- NOTE | 2020-05-25 11:40 | NUR ---
REPORT TO AMELIE YANG. TO MOVE TO RM 331 WHEN CLEANED.
--- NOTE | 2020-05-25 14:16 | NUR ---
TRANSFER TO ICU AT 11AM THIS MORNING. SHIFT SUMMARY FROM MEDICAL FLOOR: 05-25-20 @ 1045-- PT ORIENTED TO SELF AND THIS MORNING. SLURRED SPEECH, DENIES PAIN THIS SHIFT. L SIDE FLACCID. LOPEZ DRAINING WELL. LOOSE BLACK STOOL THIS MORNING. FLUSHED WATER (25CC) THIS MORNING PER DR STANLEY AND GOT OUT DARK BLOOD. CALLED HIM AROUND 0830 AND INFORMED HIM OF THIS, HE STATES PT WILL GO TO EGD AT 1PM AND POSSIBLY HAVE CT ANGIO AFTERWARDS. CORE MACHINE TENDER STARTED 1ST UNIT PRBC AROUND 0600 THIS MORNING, STARTED 2ND UNIT PRBC AROUND 0930. HR RISING FROM STARTING OUT AT 111 THIS SHIFT TO 127. CALLED [facility] TO TRANSFER PT TO PCU, BUT ICU HAS THE BED AVAILABLE. CALLED REPORT AND TOOK PT UP AT 1100.
--- NOTE | 2020-05-25 18:41 | NUR ---
SHIFT SUMMARY ASSUMED CARE OF PT WHEN HE TRANSFERRED OUT OF THE BACK TURNER AROUND 1230PM. DAUGHTER MERYL AT BEDSIDE MOST OF THE DAY. PT MOSTLY ORIENTED. AO2 WITH GAITBELT AND WALKER TO TRANSFER FROM CHAIR TO BED. LOPEZ PATENT AND DRAINING. DENIES PAIN. POOR APPETITE. PLEASANT AND COOPERATIVE, WCTM
--- NOTE | 2020-05-26 03:38 | NUR ---
UTILIZATION MANAGER NOTES PT BECAME INCREASINGLY CONFUSED DURING THE NIGHT BUT WAS PLEASANT AND COOPERATIVE. PT DENIED ANY PAIN OR NAUSEA DURING THE SHIFT. PT SLEPT COMFORTABLY IN BED W CALL LIGHT WITHIN REACH FOR MAJORITY OF THE NIGHT. BEDTIME DOSE OF METOPROLOL HELD DUE TO LOW HEART RATE WHICH HAS REMAINED IN THE LOW 50'S DURING THE NIGHT.
[2020-05-26 05:09] LABS: BASOPHILS ABSOLUTE AUTO 0.05 K/mm3 (0.00-0.23); BASOPHILS PERCENT AUTO 0 % (0-2); EOSINOPHILS ABSOLUTE AUTO 0.57 K/mm3 (0.00-0.68); EOSINOPHILS PERCENT AUTO 4 % (0-6); Hematocrit 36.8 % (37.0-53.0); Hemoglobin 12.1 g/dL (13.5-17.5); IMMATURE GRAN ABSOLUTE AUTO 0.21 K/mm3 (0.00-0.10); IMMATURE GRAN PERCENT AUTO 2 % (0-1); LYMPHOCYTES ABSOLUTE AUTO 1.07 K/mm3 (0.84-5.20); LYMPHOCYTES PERCENT AUTO 8 % (21-46); MONOCYTES ABSOLUTE AUTO 0.87 K/mm3 (0.16-1.47); MONOCYTES PERCENT AUTO 7 % (4-13); Mean Corpuscular HGB 27.6 pg (26.0-34.0); Mean Corpuscular HGB Conc 32.9 g/dL (31.5-36.5); Mean Corpuscular Volume 84 fL (80-100); Mean Platelet Volume 9.9 fL (9.1-12.4); NEUTROPHILS ABSOLUTE AUTO 10.65 K/mm3 (1.96-9.15); NEUTROPHILS PERCENT AUTO 79 % (41-73); Platelet Count 376 K/mm3 (150-400); RDW Coefficient Variation 13.6 % (11.7-14.2); RDW Standard Deviation 42.2 fL (35.1-46.3); Red Blood Cell Count 4.39 M/mm3 (4.30-5.90); White Blood Cell Count 13.42 K/mm3 (4.00-11.30)
[2020-05-26 05:36] LABS: Bun/Creatinine Ratio 33.2 (12.0-20.0); Creatinine, Blood 2.02 mg/dL (0.60-1.20); Potassium, Blood 4.2 mmol/L (3.5-5.5)
--- NOTE | 2020-05-26 18:40 | NUR ---
Met with pt to review his needs. Pt complains of great fatigue and a headache. He denies nausea or pain but aches all over. pt wanted to talk aobut his stressors of how declined he has become. He is worried about his daughter he feels he needs to much care to live with her anymore. 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 Did some diversion with him and talked about some of his adventures in life. Pt daughter came by to see we she is hopeful that he can participate in rehab. Advised her that if he does not want to or it is not an option may consider hospice care. Will see if [facility] would [facility] and [facility] the [facility]. Will follow up with care managers and pt family.
--- NOTE | 2020-05-27 05:03 | NUR ---
INSTALLATION SERVICE REPRESENTATIVE SUMMARY NO ACUTE CHANGES THIS SHIFT. PT AAOX3 AND PLEASANT. DENIES PAIN, SOB, N/V. PT HAS SLEPT OFF/ON THROUGH THE NIGHT. LOPEZ CATH PATENT AND DRAINING. BED ALARM ON FOR SAFETY HOWEVER PT HAS NOT ATTEMPTED TO GET OUT OF BED THIS SHIFT. VSS, WILL CONTINUE TO MONITOR.
--- NOTE | 2020-05-27 13:20 | NUR ---
review of pt with manager respiratory care and pysical therapist.
--- NOTE | 2020-05-27 17:58 | NUR ---
SHIFT SUMMARY PT A/O X2/3; PLEASANT AND COOPERATIVE WITH CARE. PT HAS PERIODS OF CONFUSION BUT OVERALL HAS BEEN FAIRLY ORIENTED TODAY. MEDICATIONS ADJUSTED AND LOPEZ CATHETER DC'D. PT VOIDING VERY SMALL AMOUNTS OF EMMANUELLE URINE. WILL CONTINUE TO MONITOR URINE OUTPUT. C/O DIZZINESS THIS AM; BP GOOD AND VSS. DAUGHTER AT BEDSIDE. PT IS POSSIBLY DISCHARGE TO SNF IN 1-2 DAYS. PT 1/2 STAND PIVOT ASSIST WHEN GETTING UP. WILL CONTINUE TO MONITOR.
--- NOTE | 2020-05-28 04:59 | NUR ---
SHIFT SUMMARY ASSUMED CARE OF PT AT 1900. PT IS A/OX2, DENIES N/T IN EXTREMITES. HEART SOUNDS REGULAR, LUNG SOUNDS CLEAR, PT HAS WET COUGH. PT WAS IN/CONTINENT DURING THE NIGHT. PT ATTEMPTED TO GET OUT OF BED TWICE LAST NIGHT. PT IS 1P SBA WITH WALKER TO BATHROOM. NO ACUTE CHANGES DURING THE NIGHT. PT SLEPT SOME OF THE NIGHT. CALL LIGHT IN REACH, BED IN LOWEST POSTION, BED ALARM ON.
[2020-05-28 06:06] LABS: Bun/Creatinine Ratio 40.4 (12.0-20.0); Calcium, Blood 9.4 mg/dL (8.5-10.1); Creatinine, Blood 1.46 mg/dL (0.60-1.20)
--- NOTE | 2020-05-28 13:20 | NUR ---
Hour long conversation with Nito this morning. He starts the conversation by saying that he and his dtr, Shonda, are at odds re: his discharge plan to rehab. He reports that he wants to go home. Allowed him to express his frustations and fears. He tells this commercial insurance underwriter [place] Shonda checks in on him daily and assists with cooking, cleaning and helping where needed. He expresses his gratitude for all of her assistance. He does seem to have some forgetfulness, however he tells this commercial insurance underwriter about his life's work, adventures, career and his children. He is a published author of several books and shows this commercial insurance underwriter a pamphlet of his published works. His mood elevated with the diversion of talking about his life. Explained recommendations of PT and the reasoning behind going to rehab. Pt states that he "has been feeling off balance." Discussed safe discharge plan for him to be successful. Explained the plan for rehab is short term. Pt expresses fears of being out of control of his situation and also the fear of being sent to rehab and never going home. Allowed him to talk about his fears. Nito started to warm up to the idea of going to rehab towards the end of the conversation. He requested that I call his dtr and to let her know that he loved her. Spoke with Shonda via phone. Relayed my conversation with Nito and told her that he loved her. She was appreciative of the phone call and stated to this commercial insurance underwriter that her goal is to have Nito be able to come home. Her hope is that he will be able to go to rehab and come home stronger. If his function declines or he is not successful in rehab, Shonda states she would make arrangements to bring him home with hospice. At this point, she is wanting rehab to give him the best chance to recover. Discussed POLST form, Shonda sates she wants talk to Nito about his wishes before filling out a POLST. Returned to Nito's room to update him on my conversation with Shonda. He thanked this commercial insurance underwriter for the call and update. Plan at this time is discharge to rehab when bed is available per YAO Hargrove. Nito and Shonda updated on current plan. PC to continue to follow.
[2020-05-28] MEDS ORDERED: METO25 PO (15:22)
[2020-05-28] MEDS ORDERED: Citalopram HBr20 MG PO (15:22)
[2020-05-28] MEDS ORDERED: FINA5 PO (15:28)
[2020-05-28] MEDS ORDERED: FURO20 PO (15:29)
--- NOTE | 2020-05-28 17:18 | NUR ---
SHIFT SUMMARY PT A/O X2; HE IS ORIENTED TO HIMSELF AND FAMILY AND COOPERATIVE WITH CARE. PT CONT./INCONT AND VOIDING IN URINAL. PT HAS BEEN ABLE TO CALL APPROPRIATELY. PT HAS NOT TRIED TO GET OUT OF BED ON HIS OWN THIS SHIFT. BED ALARM IN PLACE. FACILITY DISCHARGE TO [facility] VIA WHEELCHAIR VAN. DAUGHTER CAME TO VISIT WITH PT PRIOR TO DISCHARGE. COVID TEST NEGATIVE AND TEMP 98.8. REPORT CALLED TO [facility] NURSE AT 1720.
== END 2020-05-28 16:47 | DRG 291 ==
LOC: ER 19:53 → MEDS 19:54 → PCU 05-13 14:27 → MEDS 05-13 14:28 → PCU 05-14 11:42 → MEDS 05-19 15:09
PROVIDERS: Emergency Medicine; Internal Medicine; ADMIT Family Medicine
DX: I11.0 Hypertensive heart disease with heart failure (principal); G92 Toxic encephalopathy; N17.9 Acute kidney failure, unspecified; I48.20 Chronic atrial fibrillation, unspecified; F03.91 Unspecified dementia, unspecified severity, with behavioral disturbance; F05 Delirium due to known physiological condition; E87.2 Acidosis; T83.83XA Hemorrhage due to genitourinary prosthetic devices, implants and grafts, initial encounter; Z20.828 Contact with and (suspected) exposure to other viral communicable diseases; I13.0 Hypertensive heart and chronic kidney disease with heart failure and stage 1 through stage 4 chronic kidney disease, or unspecified chronic kidney disease; N18.30 Chronic kidney disease, stage 3 unspecified; I50.43 Acute on chronic combined systolic (congestive) and diastolic (congestive) heart failure; N40.1 Benign prostatic hyperplasia with lower urinary tract symptoms; R54 Age-related physical debility; I44.7 Left bundle-branch block, unspecified; R33.0 Drug induced retention of urine; I08.1 Rheumatic disorders of both mitral and tricuspid valves; I25.10 Atherosclerotic heart disease of native coronary artery without angina pectoris; K59.00 Constipation, unspecified; Z79.01 Long term (current) use of anticoagulants; R31.9 Hematuria, unspecified; G31.84 Mild cognitive impairment of uncertain or unknown etiology
CPT/HCPCS: 36415; 51700; 71045; 71046; 76770; 80048; 80053; 80069; 81001; 81003; 83605; 83735; 83880; 84145; 84443; 84484; 85014; 85018; 85025; 85027; 87086; 93005; 93010; 93306; 94762; 96374; 96376; 97110; 97116; 97162; 98960; 99285-25; A9270; A9270-GY; G0103; G0378; J0696; J1630; J1940; J2060; J2270; J7050; U0003

== ENCOUNTER 2020-06-25 15:29 | Inpatient (IN) | payer OTHER, MEDICARE ==
[~2020-06-25] VITALS: Ht 188 cm; Wt 88.0 kg
[~2020-06-25 15:29] MED LIST changes: +Citalopram HBr20 MG PO; +FURO20 PO; +METO100ER PO; +METO25 PO
[2020-06-25 15:50] LABS: Calcium, Ionized (POC) 0.98 mmol/L (1.10-1.46); Chloride (POC) 93 mmol/L (98-108); Creatinine (POC) 4.1 mg/dL (0.8-1.3); Glucose (ISTAT POC) 119 mg/dL (70-99); Hemoglobin (POC) 18.4 g/dL (13.5-17.5); Potassium (POC) 4.7 mmol/L (3.5-5.5); Sodium (POC) 132 mmol/L (135-148); Total CO2 (POC) 19 mmol/L (21-32)
[2020-06-25 16:01] LABS: BASOPHILS ABSOLUTE AUTO 0.05 K/mm3 (0.00-0.23); BASOPHILS PERCENT AUTO 0 % (0-2); EOSINOPHILS PERCENT AUTO 0 % (0-6); Hematocrit 51.1 % (37.0-53.0); Hemoglobin 16.1 g/dL (13.5-17.5); IMMATURE GRAN ABSOLUTE AUTO 0.16 K/mm3 (0.00-0.10); IMMATURE GRAN PERCENT AUTO 1 % (0-1); LYMPHOCYTES ABSOLUTE AUTO 1.56 K/mm3 (0.84-5.20); LYMPHOCYTES PERCENT AUTO 7 % (21-46); MONOCYTES ABSOLUTE AUTO 1.41 K/mm3 (0.16-1.47); MONOCYTES PERCENT AUTO 7 % (4-13); Mean Corpuscular HGB Conc 31.5 g/dL (31.5-36.5); Mean Corpuscular Volume 86 fL (80-100); Mean Platelet Volume 10.2 fL (9.1-12.4); NEUTROPHILS ABSOLUTE AUTO 18.18 K/mm3 (1.96-9.15); NEUTROPHILS PERCENT AUTO 85 % (41-73); Platelet Count 387 K/mm3 (150-400); RDW Coefficient Variation 15.8 % (11.7-14.2); Red Blood Cell Count 5.97 M/mm3 (4.30-5.90); White Blood Cell Count 21.36 K/mm3 (4.00-11.30)
[2020-06-25 16:16] LABS: International Normalized Ratio 1.52; Prothrombin Time Results 15.9 Sec (9.7-11.5)
[2020-06-25 16:19] LABS: Albumin, Blood 3.2 g/dL (3.4-5.0); Albumin/Globulin Ratio 0.8 (0.8-1.8); Bilirubin, Total 2.2 mg/dL (0.1-1.0); Bun/Creatinine Ratio 18.2 (12.0-20.0); Calcium, Blood 10.4 mg/dL (8.5-10.1); Creatinine, Blood 3.74 mg/dL (0.60-1.20); Globulin, Blood 4.2 g/dL (2.2-4.0); Potassium, Blood 4.9 mmol/L (3.5-5.5); Total Protein, Blood 7.4 g/dL (6.4-8.2)
[2020-06-25 19:29] LABS: BASOPHILS ABSOLUTE AUTO 0.04 K/mm3 (0.00-0.23); BASOPHILS PERCENT AUTO 0 % (0-2); EOSINOPHILS PERCENT AUTO 0 % (0-6); Hematocrit 42.2 % (37.0-53.0); Hemoglobin 13.8 g/dL (13.5-17.5); IMMATURE GRAN ABSOLUTE AUTO 0.14 K/mm3 (0.00-0.10); IMMATURE GRAN PERCENT AUTO 1 % (0-1); LYMPHOCYTES PERCENT AUTO 7 % (21-46); MONOCYTES ABSOLUTE AUTO 1.03 K/mm3 (0.16-1.47); MONOCYTES PERCENT AUTO 5 % (4-13); Mean Corpuscular HGB Conc 32.7 g/dL (31.5-36.5); Mean Corpuscular Volume 82 fL (80-100); Mean Platelet Volume 10.2 fL (9.1-12.4); NEUTROPHILS ABSOLUTE AUTO 18.71 K/mm3 (1.96-9.15); NEUTROPHILS PERCENT AUTO 88 % (41-73); Platelet Count 397 K/mm3 (150-400); RDW Coefficient Variation 15.4 % (11.7-14.2); RDW Standard Deviation 45.6 fL (35.1-46.3); Red Blood Cell Count 5.12 M/mm3 (4.30-5.90); White Blood Cell Count 21.32 K/mm3 (4.00-11.30)
--- NOTE | 2020-06-26 | NUR ---
PT TO ICU 7 VIA [facility]LAINE WITH ED RN @ 2119, PT AROUSES TO VERBAL STIMULI, ORIENTED ONLY TO SELF AND REPEATEDLY STS HIS NAME, AND "I SHOULD NOT BE HERE", PT ON 5L PER NC, DIFFICULTY OBTAINING ACCURATE SPO2, MONITOR SHOWS TACHYCARDIA WITH HR 150'S-170'S, DOPAMINE INFUSING @ 4mcg/kg/min, CALL PLACED TO DR REILLY, UPDATED ON PTS VITALS NEW ORDERS TO D/C DOPAMINE AND START LEVOPHED, AMIODARONE BOLUS AND THEN AMIODARONE GTT. PT REPORTS NEED TO VOID, ATTEMPTED USE OF URINAL BUT UNABLE TO VOID, BLADDER SCAN SHOWED 289ml OF URINE. REPORT FROM ED RN OF JOSE LOPEZ ATTEMPTS. ATTENDS IN PLACE. PT WITH INCREASED RESTLESS AND FIDGETING, PULLING AT LINES/TUBES, NEW ORDER FOR RESTRAINTS. CALL PLACED TO DAUGHTER, UPDATED ON PTS STATUS, AND COMPLETED ADMISSION HISTORY/ASSESSMENTS.
[2020-06-26 04:15] LABS: Hematocrit 43.1 % (37.0-53.0); Hemoglobin 14.2 g/dL (13.5-17.5); Mean Corpuscular HGB 26.6 pg (26.0-34.0); Mean Corpuscular HGB Conc 32.9 g/dL (31.5-36.5); Mean Corpuscular Volume 81 fL (80-100); Mean Platelet Volume 10.6 fL (9.1-12.4); Platelet Count 371 K/mm3 (150-400); RDW Coefficient Variation 15.1 % (11.7-14.2); RDW Standard Deviation 44.2 fL (35.1-46.3); Red Blood Cell Count 5.33 M/mm3 (4.30-5.90); White Blood Cell Count 20.54 K/mm3 (4.00-11.30)
[2020-06-26 04:41] LABS: Albumin/Globulin Ratio 0.8 (0.8-1.8); Bilirubin, Total 1.9 mg/dL (0.1-1.0); Bun/Creatinine Ratio 20.8 (12.0-20.0); Calcium, Blood 9.5 mg/dL (8.5-10.1); Creatinine, Blood 3.99 mg/dL (0.60-1.20); Globulin, Blood 3.6 g/dL (2.2-4.0); Potassium, Blood 3.9 mmol/L (3.5-5.5); Total Protein, Blood 6.6 g/dL (6.4-8.2)
--- NOTE | 2020-06-26 06:42 | NUR ---
SHIFT SUMMARY PT REMAINS CONFUSED, ORIENTED ONLY TO SELF, FOLLOWS COMMANDS. PT ON 2L PER NC, MONITOR SHOWS AFIB WITH RVR, 12 BEAT RUN OF VTACH THIS SHIFT, SEE CHART. AMIODARONE GTT @ 0.5mg/min AND LEVOPHED GTT @ 8mcg/min. SKIN APPEARS LESS DUSKY, REMAINS SOMEWHAT JAUNDICED. NO BM OR EMESIS THIS SHIFT. PT WITH VERY LITTLE INCONTINENT URINE OUTPUT, BLADDER SCAN UPON ARRIVAL SHOWED 289ml AND FOLLOW UP BLADDER SCANN AT 0400 SHOWED LESS THAN 200ml.
--- NOTE | 2020-06-26 07:20 | NUR ---
Assumed care of pt at 0700. Bedside report received from Aniyah YANG. Pt A&O x 1. Answers questions appropriately. In bilateral wrist restraints to prevent self-removal of central line. Pt confused and often pulls on cords and lines. Pt has levophed infusing through central line at rate of 8 mcg/min. BP stable, but low. HR 120s. Call placed to Dr Enriquez to discuss low BP, elevated HR, and WBC count. Inquired about checking lactic acid and blood cultures. No new orders at this time. Provider states she will review chart and patient.
--- NOTE | 2020-06-26 08:13 | NUR ---
Dr Enriquez in to see patient. Discussed that pt had several unsuccessful lowery attempts in emergency department and is incontinent, therefore possibly unable to obtain urinalysis. Discussed screening for SARS-CoV-2. New orders received. RTDaxa, at bedside to obtain ABG.
[2020-06-26 08:32] LABS: PCO2 Arterial 32.9 mmHg (35-45); PO2 Arterial 57.5 mmHg (80-100); pH Blood Arterial 7.56 (7.35-7.45)
--- NOTE | 2020-06-26 09:50 | NUR ---
Palliative care RN, Gina, and Dr Enriquez in to see patient and daughter. Plan for patient to transition to comfort care.
--- NOTE | 2020-06-26 11:52 | NUR ---
Review of prognosis with patients daughter and his care needs. She relayed great stress at his struggle to rehab. discussed comfort care and she agreed it is time. Pt placed on comfort measures.
--- NOTE | 2020-06-26 14:00 | NUR ---
Spiritual care visit conducted. Patient is lying in bed and somewhat aware of the people around him. Patient mostly mumbles but has some clear nodding gestures and eye contact. Patient nodded yes that he remembers me, nodded affirmingly to prayer and (In response to families greatest concern) I asked if patient wanted to me to pray for God's forgiveness and acceptance to which he also nodded that he was amenable. I gladly provided prayer. Patient had no clear gestures after this but more mumbling and pulling at his monitor leads. I sit with patient's daughter Shonda at length and talk about how she and the family are holding up given patient's new medical status. We talk about the options that the staff are working on for patient. I will continue to remain available to patient and family.
--- NOTE | 2020-06-26 14:34 | NUR ---
Pt transferred up to room 310 by this RN. Transferred via bed and placed in new bed using slider sheet and 3 staff. Pt's daughter, Brenda, accompanied pt at time of transfer. Pt given roxanol prior to transfer due to moaning. Report given to RN to assume care, Carla. Chart, meds, and belongings transferred with patient.
--- NOTE | 2020-06-26 17:03 | NUR ---
1415 NOTE JUST RECEIVED FROM ICU 7. TRANSFERRED WITH SLIDER SHEET TO THE NEW BED. HE IS A LITTLE RESTLESS. GOWN REPLACED, REPOSITIONED AND COVERED WITH BLANKET. HE IS STARTING TO LOOK MORE COMFORTABLE. ICU NURSE GAVE HIM ROXANOL JUST BEFORE TRANSPORT TO HIS NEW ROOM. DAUGHTER AT BEDSIDE.
--- NOTE | 2020-06-26 17:06 | NUR ---
1430 NOTE DAUGHTER RAINA IS HOLDING THE PHONE UP TO HER DAD. HIS OTHER DAUGHTER IS ON THE PHONE.
--- NOTE | 2020-06-26 17:07 | NUR ---
1530 NOTE I JUST CHECKED IN WITH THE PATIENT AFTER MY LUNCH BREAK. THE DAUGHTER AND PALLIATIVE CARE NURSE ARE TALKING. DON AT 1510. RAKESH YANG FROM PALLIATIVE CARE WALKED INTO THE ROOM AT 1510. THE DAUGHTER RAINA WAS JUST GOING TO CALL THE NURSE BECAUSE HE HAD JUST STOPPED BREATHING. CRIS YANG PRONAOUNCED HIM FINDING HIM WITHOUT A PULSE OR RESPIRATIONS. WILL NOTIFY MD AND STAMP MOUNTER.
--- NOTE | 2020-06-26 17:12 | NUR ---
FINAL DISCHARGE COMPLETED. HIS DAUGHTER STAYED UNTIL [facility] PIKED HIM UP. HE LEFT THE ROOM AT 1645. THERE WERE NO BELONGINGS. HIS DAUGHTER RAINA SAID SHE ALREADY TOOK THEM HOME.
== END 2020-06-26 15:10 | DRG 291 ==
LOC: ER 15:29 → ICUE 15:30 → MEDS 15:30 → ICUW 15:30 → ICUE 21:20 → MEDS 06-26 14:15
PROVIDERS: Emergency Medicine; Student in an Organized Health Care Education/Training Program; ADMIT Internal Medicine
PROC: 02HV33Z Insertion of Infusion Device into Superior Vena Cava, Percutaneous Approach (ICD-10-PCS; principal; 2020-06-25)
PROC: 3E043XZ Introduction of Vasopressor into Central Vein, Percutaneous Approach (ICD-10-PCS; 2020-06-25)
DX: R57.0 Cardiogenic shock (principal); J96.01 Acute respiratory failure with hypoxia; N17.9 Acute kidney failure, unspecified; I50.22 Chronic systolic (congestive) heart failure; Z87.891 Personal history of nicotine dependence; Z20.828 Contact with and (suspected) exposure to other viral communicable diseases; I77.810 Thoracic aortic ectasia; G31.84 Mild cognitive impairment of uncertain or unknown etiology; Z51.5 Encounter for palliative care; Z66 Do not resuscitate
CPT/HCPCS: 36415; 36556; 36600; 51702; 71045; 80047; 80053; 82272; 82803; 83605; 83880; 84484; 85014; 85025; 85027; 85610; 85730; 86850; 86900; 86901; 86923; 87040; 93005; 93010; 96365-59; 96366-59; 96367-59; 96368; 96375-59; 99285-25; C1751; C9113; J0171; J0282; J0692; J1160; J1265; J2060; J2765; J3370; J7050; J7060; U0004